=== PATIENT | male | born 1940 | race Caucasian/White ===

== ENCOUNTER 2018-03-20 15:17 | Emergency (ER) | payer OTHER ==
--- OUTSIDE RECORDS SUMMARY | 2018-03-20 15:21 | XMS REPORT | Clinical Summary ---
:1940 Author Organization [facility] Address [address] [place] [address] Care Team Providers Name Role Phone Alfie Biswas MD Primary Care Provider Allergies Active Allergy Reactions Severity Noted Date Comments No Known Drug Allergies 11/28/2015 Medications Medication Sig Dispensed Refills Start Date End Date Status VIT Take 2 0 Active C/E/ZN/COPPR/LUTEI capsules by N/ZEAXAN mouth 2 (two) (PRESERVISION times a day. AREDS 2 ORAL) carvedilol (COREG) Take 25 mg by 0 Active 25 MG tablet mouth 2 (two) times a day. 1.5 tabs 2x daily finasteride Take 5 mg by 0 Active (PROSCAR) 5 mg mouth every tablet morning. tamsulosin Take 0.4 mg by 0 Active (FLOMAX) 0.4 mg mouth 2 (two) capsule,extended times a day. release 24hr ENTRESTO 24-26 mg Take 25 mg by 0 03/09/2017 Active tablet per tablet mouth 2 (two) times a day. memantine daily. At 0 03/21/2017 Active (NAMENDA) 10 MG lunch tablet atorvastatin Take 80 mg by 0 Active (LIPITOR) 80 MG mouth daily. tablet Takes 1/2 tab topiramate Take 100 mg by 0 Active (TOPAMAX) 100 MG mouth every tablet morning. Takes 1/2 tablet atorvastatin Take 10 mg by 0 04/05/2017 Discontinued (LIPITOR) 10 MG mouth daily. tablet topiramate Take 0.5 0 07/11/2017 Discontinued (TOPAMAX) 200 MG tablets by tablet mouth. atorvastatin Take 1 tablet 30 tablet 3 04/05/2017 05/05/2017 (LIPITOR) 40 MG (40 mg total) tablet by mouth daily for 30 days. aspirin (ECOTRIN) Take 1 tablet 90 tablet 3 04/05/2017 05/05/2017 81 MG enteric (81 mg total) coated tablet by mouth daily for 30 days. topiramate TAKE ONE (1) 0 05/07/2017 08/01/2017 Discontinued (TOPAMAX) 100 MG TABLET(S) BY tablet MOUTH ONCE A DAY. docusate sodium Take 1 capsule 60 capsule 0 08/08/2017 08/09/2017 Discontinued (COLACE) 100 MG (100 mg total) capsule by mouth 2 (two) times a day for 30 days. traMADol (ULTRAM) Take 1 tablet 21 tablet 0 08/08/2017 08/18/2017 50 mg tablet (50 mg total) by mouth every 6 (six) hours as needed for moderate pain for up to 21 doses. acetaminophen-code Take 1 tablet 30 tablet 0 08/08/2017 08/09/2017 Discontinued ine (TYLENOL WITH by mouth every CODEINE #3) 300-30 6 (six) hours mg per tablet as needed for moderate pain for up to 14 days. acetaminophen-code Take 1 tablet 30 tablet 0 08/09/2017 08/23/2017 ine (TYLENOL WITH by mouth every CODEINE #3) 300-30 6 (six) hours mg per tablet as needed for moderate pain for up to 14 days. docusate sodium Take 1 capsule 60 capsule 0 08/09/2017 09/08/2017 (COLACE) 100 MG (100 mg total) capsule by mouth 2 (two) times a day for 30 days. Active Problems Problem Noted Date Right kidney mass 08/08/2017 Right renal mass 08/06/2017 Dyspnea on effort 04/03/2017 S/P mitral valve clip implantation 03/22/2017 Hyperlipidemia 11/28/2015 Essential hypertension 11/28/2015 Coronary arteriosclerosis in [place] artery 11/28/2015 Mitral valve regurgitation 11/28/2015 Nonischemic congestive cardiomyopathy 11/28/2015 Encounters Date Type Specialty Care Team Description 10/01/2017 Telephone Urology Carlos Wu MD 08/14/2017 Office Visit Urology Frederic Renal mass (Primary Carlos mendoza MD Dx) 08/09/2017 Patient Outreach Quality Caroline Kelsey RN 08/09/2017 Telephone Urology Dionna Wilcox MA 08/06/2017 Anesthesia Event Urology Delaflor-Stefany Presley NP 08/06/2017 Surgery Urology [facility] ROBOTIC ASSISTED Carlos mendoza MD LAPARSCOPIC RIGHT RADICAL NEPHRECTOMY 08/06/2017 [facility] (Primary Dx[facility] - Medicine Carlos mendoza MD Right renal mass 08/09/2017 08/02/2017 Hospital Encounter Radiology Carlos Wu MD 08/01/2017 Hospital Encounter Radiology [facility] Preop testing Carlos mendoza MD 08/01/2017 Pre-Admit Testing Pre-Admission [facility] Preop testing ( Primary Appointment Testing Carlos mendoza MD Dx) 08/01/2017 Office Visit Urology [facility] Right renal mass Carlos mendoza MD (Primary Dx) 07/29/2017 Telephone Urology Dionna Wilcox MA 07/11/2017 Office Visit Cardiology Jeff, Coronary arteriosclerosis in [place] artery (Primary Dx); Julito Ortiz, Non-rheumatic mitral regurgitation; Nonischemic congestive cardiomyopathy 07/11/2017 Orders Only Urology Samantha Heath MA 07/10/2017 Office Visit Urology [facility] Right renal mass Carlos mendoza MD (Primary Dx) 04/11/2017 Office Visit Cardiology Jeff, Mitral valve insufficiency, unspecified etiology (Primary Dx); Julito Ortiz, Coronary arteriosclerosis in [place] artery; Nonischemic congestive cardiomyopathy 04/03/2017 Surgery Procedural Jeff, Cv left heart cath w Cardiology Juliot Ortiz, lv gram cors [36980 (CPT)] 04/03/2017 Hospital Encounter Nayan Huff, 04/05/2017 04/02/2017 Orders Only Cardiology Jeff, Pre-procedure lab exam (Primary Dx); Julito Ortiz, Angina at rest; Coronary artery disease involving [place] coronary artery of [place] heart with angina pectoris 04/02/2017 Orders Only Cardiology Julito Aguilar MD 03/28/2017 Multidisciplinary Visit Cardiology Jeff, S/P mitral valve clip implantation (Primary Dx); Julito Ortiz, Essential hypertension; Coronary arteriosclerosis in [place] artery 03/28/2017 Hospital Encounter Procedural Jeff Mitral valve disorder; Janusz Ortiz, S/P mitral valve clip implantation 03/22/2017 Orders Only Cardiology Michelle, Mitral valve disorder (Primary Dx); Estefania, S/P mitral valve clip implantation MA 03/22/2017 Orders Only Cardiology Michelle, Mitral valve disorder (Primary Dx); Estefania, S/P mitral valve clip implantation MA after 03/19/2017 Family History Medical History Relation Name Comments Heart disease Father Hypertension Father Hypertension Mother Hypertension Other Relation Name Status Comments Father (Age 65) Mother (Age 87) Other (Age 94) Social History Tobacco Use Types Packs/Day Years Used Date Former Smoker 2 14 Quit: 1964 Smokeless Tobacco: Never Used Alcohol Use Drinks/Week oz/Week Comments Yes occasional Sex Assigned at Date Recorded Not on file Job Start Date Occupation Industry Not on file Not on file Not on file Travel History Travel Start Travel End No recent travel history available. Last Filed Vital Signs Vital Sign Reading Time Taken Blood Pressure 121/58 08/09/2017 11:42 AM CDT Pulse 60 08/09/2017 11:42 AM CDT Temperature 36.2 C (97.2 F) 08/09/2017 11:42 AM CDT Respiratory Rate 18 08/09/2017 11:42 AM CDT Oxygen Saturation 94% 08/09/2017 11:42 AM CDT Inhaled Oxygen Concentration - - Weight 89.4 kg (197 lb) 08/06/2017 12:39 PM CDT Height 177.8 cm (5' 10") 08/01/2017 1:22 PM CDT Body Mass Index 28.27 08/06/2017 12:39 PM CDT Plan of Treatment Health Maintenance Due Date Last Done Comments SHINGLES VACCINES (1 of 2) 01/10/1988 PNEUMOCOCCAL POLYSACCHARIDE VACCINE AGE 65 AND OVER 2003 PNEUMOCOCCAL-13 2003 INFLUENZA VACCINE 09/18/2017 Implants Implanted Type Area Kayak Maker Device Shelf Model / Identifier Expiration Serial / Date Lot Clip Ligtng Hem-O-Braden Endoscpc Aplr [facility] Lg - [id number] Surgical N/A: N/A WECK CLOSURE [id number] / Implanted: 08/06/2017 (Quantity not on file) Implants; SYSTEMS / Expanders; Extenders; Surgical Wires Clip Ligtng Weck Hem-O-Braden Endoscpc Aplr Xl Plymr - [id number] Surgical N/A: N/A WECK CLOSURE [id number] / Implanted: 08/06/2017 (Quantity not on file) Implants; SYSTEMS / Expanders; Extenders; Surgical Wires Clip Ligtng Hem-O-Braden Endoscpc Aplr Plymr Lg - [id number] Surgical N/A: N/A WECK CLOSURE [id number] / Implanted: 08/06/2017 (Quantity not on file) Implants; SYSTEMS / Expanders; Extenders; Surgical Wires Clip Ligtng Weck Hem-O-Braden Endoscpc Aplr Xl Plymr - [id number] Surgical N/A: N/A WECK CLOSURE [id number] / Implanted: 08/06/2017 (Quantity not on file) Implants; SYSTEMS / Expanders; Extenders; Surgical Wires Procedures Procedure Name Priority Date/Time Associated Comments Diagnosis BASIC METABOLIC PANEL Routine 08/14/2017 11:46 Renal mass Results for this AM CDT procedure are in the results section. ZZESTIMATED GFR Routine 08/09/2017 4:00 Results for this AM CDT procedure are in the results section. BASIC METABOLIC PANEL Routine 08/09/2017 4:00 Results for this AM CDT procedure are in the results section. HEMATOCRIT Routine 08/09/2017 12:40 Results for this AM CDT procedure are in the results section. HEMOGLOBIN Routine 08/09/2017 12:40 Results for this AM CDT procedure are in the results section. ZZESTIMATED GFR Routine 08/08/2017 4:00 Results for this AM CDT procedure are in the results section. BASIC METABOLIC PANEL Routine 08/08/2017 4:00 Results for this AM CDT procedure are in the results section. HEMATOCRIT Routine 08/08/2017 3:30 Results for this AM CDT procedure are in the results section. HEMOGLOBIN Routine 08/08/2017 3:30 Results for this AM CDT procedure are in the results section. ZZESTIMATED GFR Routine 08/07/2017 4:05 Results for this AM CDT procedure are in the results section. HEMATOCRIT Routine 08/07/2017 4:05 Results for this AM CDT procedure are in the results section. HEMOGLOBIN Routine 08/07/2017 4:05 Results for this AM CDT procedure are in the results section. BASIC METABOLIC PANEL Routine 08/07/2017 4:05 Results for this AM CDT procedure are in the results section. ZZESTIMATED GFR STAT 08/06/2017 6:44 Results for this PM CDT procedure are in the results section. HEMOGLOBIN STAT 08/06/2017 6:44 Results for this PM CDT procedure are in the results section. HEMATOCRIT STAT 08/06/2017 6:44 Results for this PM CDT procedure are in the results section. BASIC METABOLIC PANEL STAT 08/06/2017 6:44 Results for this PM CDT procedure are in the results section. SURGICAL PATHOLOGY Routine 08/06/2017 5:49 Results for this REQUEST PM CDT procedure are in the results section. NE AN ELECTIVE Routine 08/06/2017 2:42 ENDOTRACHEAL AIRWAY PM CDT Procedure Note - Yaron Mccormack CRNA - 08/06/2017 2:42 PM CDT Airway Performed by: YARON MCCORMACK Authorized by: MINE SANCHEZ Location: OR Urgency: Elective Difficult Airway: No Resident/BLANKER OPERATOR/AA: YARON MCCORMACK Performed by: resident/BLANKER OPERATOR/AA Preoxygenated with 100% O2: Yes Mask Ventilation: Easy mask (#10 OPA) Final Airway Type: Endotracheal airway Final Endotracheal Airway: ETT Cuffed: Yes Technique Used: Direct laryngoscopy Devices/Methods Used in Placement: Intubating stylet Insertion Site: Oral Blade Type: Art Laryngoscope Blade/Videolaryngoscope Blade Size: 2 ETT Size (mm): 8.0 Cuff at minimum occlusion pressure: Yes Measured from: Teeth ETT to Teeth (cm): 23 Placement Verified by: CO2 detection and equal breath sounds Laryngoscopic view: Grade I - full view of glottis Rapid Sequence Induction (RSI): No Modified RSI: No Number of Attempts at Approach: 1 Pt. Preoxygenated for 3 minutes. Eyes taped closed after induction. Easy mask ventilation with oral airway. DL x 1 with Mil 2. Grade I view with BURP. ETT passed atraumatically through cords. Cuff to seal. +ETCO2, +bilateral breath sounds and equal chest rise. ETT secured. ARTERIAL LINE Routine 08/06/2017 2:18 PM CDT Procedure Note - Yaron Mccormack CRNA - 08/06/2017 2:18 PM CDT Arterial line Performed by: YARON MCCORMACK Authorized by: YARON MCCORMACK Staff: Performed by: Anesthesiologist Pre-procedure: patient identified, IV checked, site and side verified, risks and benefits discussed, procedure verified, surgical consent complete, patient position confirmed, monitors and equipment checked and pre-op evaluation complete MSBT: antiseptic used, all elements of maximal sterile barrier technique followed, hand hygiene performed, cap/gown used by other personnel and solutions labeled Indications: Indications: hemodynamic monitoring Anesthesia: Anesthesia: General Procedure Details: Arterial Line placement: Placed post induction Line placement site: Radial Line placement side: Left Arterial line gauge: 20 G Number of attempts: 1 Ultrasound guidance used: No Post-procedure: Post-procedure: Sterile dressing applied Post procedure circulation, sensation, movement: Normal Patient tolerance: Patient tolerated the procedure well with no immediate complications NEPHRECTOMY, PARTIAL, LAPAROSCOPIC, 08/06/2017 12:30 PM CDT Right renal mass ROBOT-ASSISTED Special Needs DAVINCI XR CHEST 2 VW Routine 08/01/2017 2:53 Preop testing Results for this PM CDT procedure are in the results section. URINE CULTURE Routine 08/01/2017 2:00 Results for this PM CDT procedure are in the results section. ECG PRE/POST OP Routine 08/01/2017 1:51 Preop testing Results for this PM CDT procedure are in the results section. PREPARE RBC Routine 08/01/2017 1:44 Results for this PM CDT procedure are in the results section. ZZESTIMATED GFR Routine 08/01/2017 1:44 Results for this PM CDT procedure are in the results section. URINALYSIS SCREEN AND Routine 08/01/2017 1:44 Preop testing Results for this MICROSCOPY, WITH PM CDT procedure are in REFLEX TO CULTURE the results section. TYPE AND SCREEN Routine 08/01/2017 1:44 Preop testing Results for this PM CDT procedure are in the results section. PROTHROMBIN TIME WITH Routine 08/01/2017 1:44 Preop testing Results for this INR PM CDT procedure are in the results section. PARTIAL THROMBOPLASTIN Routine 08/01/2017 1:44 Preop testing Results for this TIME (PTT) PM CDT procedure are in the results section. COMPREHENSIVE Routine 08/01/2017 1:44 Preop testing Results for this METABOLIC PANEL PM CDT procedure are in the results section. CBC HEMOGRAM Routine 08/01/2017 1:44 Preop testing Results for this PM CDT procedure are in the results section. CT ABD/PELVIC EXTERNAL Routine 05/30/2017 1:07 Results for this STUDY PM CDT procedure are in the results section. ECG 12-LEAD Routine 04/11/2017 9:49 Mitral valve Results for this AM [facility] insufficiency, procedure are in unspecified etiology the results section. FLOW CYTOMETRY Routine 04/05/2017 3:04 Results for this EVALUATION PM [facility] procedure are in the results section. US ABDOMEN COMPLETE STAT 04/05/2017 1:19 Results for this PM [facility] procedure are in the results section. NM MYOCARDIAL Routine 04/05/2017 11:31 Results for this PERFUSION STRESS REST AM [facility] procedure are in 1 DAY the results section. CV STRESS TEST NUCLEAR Routine 04/05/2017 11:31 Results for this CARDIO AM [facility] procedure are in the results section. ZZESTIMATED GFR Routine 04/05/2017 4:36 Results for this AM [facility] procedure are in the results section. LIPID PANEL Routine 04/05/2017 4:36 Results for this AM [facility] procedure are in the results section. HEMOGLOBIN A1C Routine 04/05/2017 4:36 Results for this AM [facility] procedure are in the results section. CBC HEMOGRAM Routine 04/05/2017 4:36 Results for this AM [facility] procedure are in the results section. BASIC METABOLIC PANEL Routine 04/05/2017 4:36 Results for this AM [facility] procedure are in the results section. INHIBIT PT, PTT MIX Routine 04/05/2017 4:36 Results for this AM [facility] procedure are in the results section. PARTIAL THROMBOPLASTIN Routine 04/05/2017 4:36 Results for this TIME (PTT) AM [facility] procedure are in the results section. HIV 1, 2 ANTIBODY Routine 04/05/2017 4:36 Results for this AM [facility] procedure are in the results section. HEPATITIS ACUTE PANEL Routine 04/05/2017 4:36 Results for this AM [facility] procedure are in the results section. C-REACTIVE PROTEIN Routine 04/05/2017 4:36 Results for this AM [facility] procedure are in the results section. SEDIMENTATION RATE Routine 04/05/2017 4:36 Results for this AM [facility] procedure are in the results section. NAOMI Routine 04/05/2017 4:36 Results for this AM [facility] procedure are in the results section. PERIPHERAL SMEAR Routine 04/04/2017 4:44 Results for this PM [facility] procedure are in the results section. CTA CORONARY ARTERIES Routine 04/04/2017 10:01 Results for this W CONTRAST AM [facility] procedure are in the results section. CBC HEMOGRAM Routine 04/04/2017 5:35 Results for this AM [facility] procedure are in the results section. ZZESTIMATED GFR Routine 04/04/2017 4:00 Results for this AM [facility] procedure are in the results section. BASIC METABOLIC PANEL Routine 04/04/2017 4:00 Results for this AM [facility] procedure are in the results section. CV LEFT HEART CATH LV Routine 04/03/2017 4:18 Results for this GRAM WITH CORS PM [facility] procedure are in the results section. HC COMPLETE BLD COUNT STAT 04/03/2017 10:24 Results for this W/AUTO DIFF AM [facility] procedure are in the results section. ECG 12-LEAD STAT 04/03/2017 10:21 Results for this AM [facility] procedure are in the results section. ZZESTIMATED GFR STAT 04/03/2017 9:43 Results for this AM [facility] procedure are in the results section. BASIC METABOLIC PANEL STAT 04/03/2017 9:43 Results for this AM [facility] procedure are in the results section. ECG 12-LEAD Routine 03/28/2017 2:33 S/P mitral valve Results for this PM [facility] clip implantation procedure are in the results section. ECHOCARDIOGRAM 2D Routine 03/28/2017 1:45 Mitral valve Results for this COMPLETE W MMODE PM [facility] disorder procedure are in SPECTRAL COLOR DOPPLER S/P mitral valve the results (40526) clip implantation section. after 03/19/2017 Results Basic metabolic panel (08/14/2017 11:46 AM CDT)Only the most recent of8 resultswithin the time period is included. Glucose 88 65 - 99 mg/dL [facility] Comment: [place] Fasting reference interval BUN, whole blood 30 (H) 7 - 25 mg/dL [facility] [place] Creatinine 2.39 (H) 0.70 - 1.18 [facility] Comment: mg/dL [place] For patients >49 years of age, the reference limit for Creatinine is approximately 13% higher for people identified as -[place]. EGFR Non-Afr. [place] 25 (L) > OR=60 [facility] mL/min/1.73m2 [place] EGFR 29 (L) > OR=60 [facility] mL/min/1.73m2 [place] BUN/creatinine ratio 13 6 - 22 (calc) [facility] [place] Sodium 139 135 - 146 mmol/L [facility] [place] Potassium 4.4 3.5 - 5.3 mmol/L [facility] [place] Chloride 105 98 - 110 mmol/L [facility] [place] CO2 24 20 - 31 mmol/L [facility] [place] Calcium 8.7 8.6 - 10.3 mg/dL [facility] [place] Specimen Blood Resulting Agency Comment Performing Organization Information: Site ID: [id number] Name: [facility] Address: [address] [place] [address] Director: Shante Lerner Performing Organization Address [facility] Phone Number [facility] [place] [address] [place] [phone] Estimated GFR (08/09/2017 4:00 AM CDT)Only the most recent of8 resultswithin the time period is included. GFR Non Af Amer 28 (A) mL/min/1.73 m2 [facility] DEPARTMENT OF PATHOLOGY AND GENOMIC MEDICINE GFR Af Amer 33 (A) mL/min/1.73 m2 [facility] DEPARTMENT OF Comment: PATHOLOGY AND GENOMIC Chronic kidney disease: <60 mL/min/1.73m2 MEDICINE Kidney failure: <15 mL/min/1.73m2 The estimated GFR is calculated from the IDMS-traceable Modification of Diet in Renal Disease Equation. The accuracy of the calculation is poor when the creatinine is normal. Calculated values >90 mL/min/1.73m2 are not reported. This equation has not been validated in children (<18 years), women, the elderly (>70 years), or ethnic groups other than Caucasians and Americans. Specimen Plasma specimen Performing Organization Address [facility] Phone Number [facility] DEPARTMENT OF PATHOLOGY AND [address] [place] [address] Hemoglobin (08/09/2017 12:40 AM CDT)Only the most recent of4 resultswithin the time period is included. HGB 11.7 (L) 14.0 - 18.0 g/dL [facility] DEPARTMENT OF PATHOLOGY AND GENOMIC MEDICINE Specimen Blood Performing Organization Address [facility] Phone Number [facility] DEPARTMENT OF PATHOLOGY AND [address] [place] [phone] [facility] Hematocrit (08/09/2017 12:40 AM CDT)Only the most recent of4 resultswithin the time period is included. HCT 36.0 (L) 41.0 - 51.0 % [facility] DEPARTMENT OF PATHOLOGY AND GENOMIC MEDICINE Specimen Blood Performing Organization Address City/[facility] Phone Number [facility] DEPARTMENT OF PATHOLOGY AND [address] [place] [phone] GENOMIC MEDICINE Surgical pathology request (08/06/2017 5:49 PM CDT) [facility] DEPARTMENT OF PATHOLOGY AND GENOMIC MEDICINE Surgical pathology report See link below for PDF [facility] DEPARTMENT OF Lab Report PATHOLOGY AND GENOMIC MEDICINE Result status This is Final Report to [facility] DEPARTMENT OF [id number] PATHOLOGY AND GENOMIC MEDICINE Performing Organization Address [facility] Phone Number [facility] DEPARTMENT OF PATHOLOGY AND [address] [place] [phone] GENOMIC MEDICINE XR Chest 2 Vw (08/01/2017 2:53 PM CDT) Narrative Performed At Examination: Chest 2 views [facility] CLINICAL HISTORY: Z01.818 Encounter for other preprocedural examination, preop COMPARISON: None. FINDINGS: The heart is normal in size. AV sequential pacemaker electrodes are in satisfactory position. IMPRESSION: No pneumothorax. Lungs are clear. Pleural surfaces are smooth. [id number] Procedure Note Interface, Radiology Results Incoming - 08/01/2017 3:00 PM CDT Examination: Chest 2 views CLINICAL HISTORY: Z01.818 Encounter for other preprocedural examination, preop COMPARISON: None. FINDINGS: The heart is normal in size. AV sequential pacemaker electrodes are in satisfactory position. IMPRESSION: No pneumothorax. Lungs are clear. Pleural surfaces are smooth. [id number] Performing Organization Address [facility] Phone Number [facility] [address] [place] [phone] Urine culture (08/01/2017 2:00 PM CDT) Urine culture SEE COMMENTComment: Bacteriuria [facility] DEPARTMENT OF PATHOLOGY screen negative. AND GENOMIC MEDICINE Performing Organization Address [facility] Phone Number [facility] DEPARTMENT OF PATHOLOGY AND [address] [place] [phone] GENOMIC MEDICINE ECG Pre/Post Op (08/01/2017 1:51 PM CDT) Ventricular rate 65 [facility] Atrial rate 65 [facility] NE interval 82 [facility] QRSD interval 186 [facility] QT interval 454 [facility] QTC interval 472 [facility] QRS axis 1 -56 [facility] T wave axis 266 [facility] EKG impression Demand pacemaker, interpretation is based on intrinsic rhythm- Sinus rhythm with short NE with premature ventricular complexes or fusion complexes-Left axis deviation-Right bundle branch block-Marked T wave abnormality, consider inferolateral [facility] MUSE ischemia-Abnormal ECG-In automated comparison with ECG of 01-AUG-2017 13:50,- NE interval has decreased-Electronically Signed By Julito Aguilar MD ([id number]) on 2:22:24 PM Performing Organization Address City/[facility] Phone Number [facility] MUSE [address] [place] [address] Urinalysis screen and microscopy, with reflex to culture (08/01/2017 1:44 PM CDT) Specimen site Clean catch [facility] DEPARTMENT OF PATHOLOGY AND GENOMIC MEDICINE Color, UA Yellow [facility] DEPARTMENT OF PATHOLOGY AND GENOMIC MEDICINE Appearance, UA Clear [facility] DEPARTMENT OF PATHOLOGY AND GENOMIC MEDICINE Specific gravity, UA 1.021 1.001 - 1.035 [facility] DEPARTMENT OF PATHOLOGY AND GENOMIC MEDICINE pH, UA 6.0 5.0 - 8.5 [facility] DEPARTMENT OF PATHOLOGY AND GENOMIC MEDICINE Protein, UA Negative Negative [facility] DEPARTMENT OF PATHOLOGY AND GENOMIC MEDICINE Glucose, UA Negative Negative [facility] DEPARTMENT OF PATHOLOGY AND GENOMIC MEDICINE Ketones, UA Negative Negative [facility] DEPARTMENT OF PATHOLOGY AND GENOMIC MEDICINE Bilirubin, UA Negative Negative [facility] DEPARTMENT OF PATHOLOGY AND GENOMIC MEDICINE Blood, UA Negative Negative [facility] DEPARTMENT OF PATHOLOGY AND GENOMIC MEDICINE Nitrite, UA Negative Negative [facility] DEPARTMENT OF PATHOLOGY AND GENOMIC MEDICINE Urobilinogen, UA <2.0 <2.0 [facility] DEPARTMENT OF PATHOLOGY AND GENOMIC MEDICINE Leukocyte esterase, UA Negative Negative [facility] DEPARTMENT OF PATHOLOGY AND GENOMIC MEDICINE WBC, UA 1 0 - 1 /HPF [facility] DEPARTMENT OF PATHOLOGY AND GENOMIC MEDICINE RBC, UA 1 0 - 5 /HPF [facility] DEPARTMENT OF PATHOLOGY AND GENOMIC MEDICINE Bacteria, UA None seen None seen [facility] DEPARTMENT OF PATHOLOGY AND GENOMIC MEDICINE Yeast, UA None seen [facility] DEPARTMENT OF PATHOLOGY AND GENOMIC MEDICINE Yeast with pseudohyphae, UA None seen [facility] DEPARTMENT OF PATHOLOGY AND GENOMIC MEDICINE Hyaline casts, UA 6 /LPF [facility] DEPARTMENT OF PATHOLOGY AND GENOMIC MEDICINE Specimen Urine Performing Organization Address City/[facility] Phone Number [facility] DEPARTMENT OF PATHOLOGY AND [address] [place] [id number] [facility] Partial thromboplastin time, activated (08/01/2017 1:44 PM CDT)Only the most recent of2 resultswithin the time period is included. PTT 29.7 23.0 - 36.0 sec [facility] DEPARTMENT OF PATHOLOGY Comment: AND GENOMIC MEDICINE PTT therapeutic range for unfractionated heparin is 61.0-112.0 seconds which corresponds to Anti-Xa 0.3-0.7 U/ml. Specimen Blood Performing Organization Address [facility] Phone Number [facility] DEPARTMENT OF PATHOLOGY AND [address] [place] [address] [employer]Me [facility] Prothrombin time with INR (08/01/2017 1:44 PM CDT) Prothrombin time 15.0 12.0 - 15.0 sec [facility] DEPARTMENT OF PATHOLOGY AND GENOMIC MEDICINE INR 1.2 [facility] DEPARTMENT OF Comment: PATHOLOGY AND GENOMIC The International Normalized Ratio (INR) is a therapeutic MEDICINE monitoring tool for patients who are stable on oral anticoagulant therapy. An INR of 2.0-3.0 is suggested for deep vein thrombosis/pulmonary embolism. Specimen Blood Performing Organization Address [facility] Phone Number [facility] DEPARTMENT OF PATHOLOGY AND [address] [place] [address] CBC hemogram (08/01/2017 1:44 PM CDT)Only the most recent of3 resultswithin the time period is included. WBC 5.64 4.50 - 11.00 k/uL [facility] DEPARTMENT OF PATHOLOGY AND GENOMIC MEDICINE RBC 4.43 4.40 - 6.00 m/uL [facility] DEPARTMENT OF PATHOLOGY AND GENOMIC MEDICINE HGB 13.6 (L) 14.0 - 18.0 g/dL [facility] DEPARTMENT OF PATHOLOGY AND GENOMIC MEDICINE HCT 41.7 41.0 - 51.0 % [facility] DEPARTMENT OF PATHOLOGY AND GENOMIC MEDICINE MCV 94.1 82.0 - 100.0 fL [facility] DEPARTMENT OF PATHOLOGY AND GENOMIC MEDICINE MCH 30.7 27.0 - 34.0 pg [facility] DEPARTMENT OF PATHOLOGY AND GENOMIC MEDICINE MCHC 32.6 31.0 - 37.0 g/dL [facility] DEPARTMENT OF PATHOLOGY AND GENOMIC MEDICINE RDW - SD 47.5 37.0 - 55.0 fL [facility] DEPARTMENT OF PATHOLOGY AND GENOMIC MEDICINE MPV 12.5 8.8 - 13.2 fL [facility] DEPARTMENT OF PATHOLOGY AND GENOMIC MEDICINE Platelet count 78 (L) 150 - 400 k/uL [facility] DEPARTMENT OF PATHOLOGY AND GENOMIC MEDICINE Nucleated RBC 0.00 /100 WBC [facility] DEPARTMENT OF PATHOLOGY AND GENOMIC MEDICINE Specimen Blood Performing Organization Address [facility] Phone Number [facility] DEPARTMENT OF PATHOLOGY AND [address] [place] [address] GENOMIC MEDICINE Prepare RBC (08/01/2017 1:44 PM CDT) Product name Red Blood Cells -1, [facility] DEPARTMENT OF Leukored PATHOLOGY AND GENOMIC MEDICINE Unit number [id number] [facility] DEPARTMENT OF PATHOLOGY AND GENOMIC MEDICINE Product code [id number] [facility] DEPARTMENT OF PATHOLOGY AND GENOMIC MEDICINE Dispense status Returned to not [facility] DEPARTMENT OF transfused PATHOLOGY AND GENOMIC MEDICINE Blood expiration date [facility] DEPARTMENT OF PATHOLOGY AND GENOMIC MEDICINE Blood type code 5100 [facility] DEPARTMENT OF PATHOLOGY AND GENOMIC MEDICINE Blood type O POSITIVE [facility] DEPARTMENT OF PATHOLOGY AND GENOMIC MEDICINE Product name Red Blood Cells -1, [facility] DEPARTMENT OF Leukored PATHOLOGY AND GENOMIC MEDICINE Unit number [id number] [facility] DEPARTMENT OF PATHOLOGY AND GENOMIC MEDICINE Product code [id number] [facility] DEPARTMENT OF PATHOLOGY AND GENOMIC MEDICINE Dispense status Returned to BB not [facility] DEPARTMENT OF transfused PATHOLOGY AND GENOMIC MEDICINE Blood expiration date [facility] DEPARTMENT OF PATHOLOGY AND GENOMIC MEDICINE Blood type code 5100 [facility] DEPARTMENT OF PATHOLOGY AND GENOMIC MEDICINE Blood type O POSITIVE [facility] DEPARTMENT OF PATHOLOGY AND GENOMIC MEDICINE Performing Organization Address City/[facility] Phone Number [facility] DEPARTMENT OF PATHOLOGY AND [address] [place] [address] GENOMIC MEDICINE Type and screen (08/01/2017 1:44 PM CDT) ABO grouping O [facility] DEPARTMENT OF PATHOLOGY AND GENOMIC MEDICINE Rh type POS [facility] DEPARTMENT OF PATHOLOGY AND GENOMIC MEDICINE Antibody screen (gel) NEG [facility] DEPARTMENT OF PATHOLOGY AND GENOMIC MEDICINE Specimen Blood Performing Organization Address City/State/Zipcode Phone Number [facility] DEPARTMENT OF PATHOLOGY AND [address] [place] [address] GENOMIC MEDICINE Comprehensive metabolic panel (08/01/2017 1:44 PM CDT) Sodium 142 135 - 148 mEq/L [facility] DEPARTMENT OF PATHOLOGY AND GENOMIC MEDICINE Potassium 4.5 3.5 - 5.0 mEq/L [facility] DEPARTMENT OF PATHOLOGY AND GENOMIC MEDICINE Chloride 109 98 - 112 mEq/L [facility] DEPARTMENT OF PATHOLOGY AND GENOMIC MEDICINE CO2 22 (L) 24 - 31 mEq/L [facility] DEPARTMENT OF PATHOLOGY AND GENOMIC MEDICINE Anion gap 11@ANIO 7 - 15 mEq/L [facility] DEPARTMENT OF PATHOLOGY AND GENOMIC MEDICINE BUN 24 (H) 8 - 23 mg/dL [facility] DEPARTMENT OF PATHOLOGY AND GENOMIC MEDICINE Creatinine 1.8 (H) 0.7 - 1.2 mg/dL [facility] DEPARTMENT OF PATHOLOGY AND GENOMIC MEDICINE Glucose 90 65 - 99 mg/dL [facility] DEPARTMENT OF PATHOLOGY AND GENOMIC MEDICINE Calcium 8.8 8.8 - 10.2 mg/dL [facility] DEPARTMENT OF PATHOLOGY AND GENOMIC MEDICINE Protein 6.3 6.3 - 8.3 g/dL [facility] DEPARTMENT OF Comment: PATHOLOGY AND GENOMIC 4.6-7.0 g/dL MEDICINE 1 week 4.4-7.6 g/dL 7 months-1year5.1-7.3 g/dL 1-2 years5.6-7.5 g/dL >3 years6.0-8.0 g/dL 18-150 6.3-8.3 g/dL Albumin 3.4 (L) 3.5 - 5.0 g/dL [facility] DEPARTMENT OF PATHOLOGY AND GENOMIC MEDICINE A/G ratio 1.2 0.7 - 3.8 [facility] DEPARTMENT OF PATHOLOGY AND GENOMIC MEDICINE Alkaline phosphatase 59 40 - 129 U/L [facility] DEPARTMENT OF PATHOLOGY AND GENOMIC MEDICINE AST 21 10 - 50 U/L [facility] DEPARTMENT OF PATHOLOGY AND GENOMIC MEDICINE ALT 16 5 - 50 U/L [facility] DEPARTMENT OF PATHOLOGY AND GENOMIC MEDICINE Total bilirubin 0.6 0.0 - 1.2 mg/dL [facility] DEPARTMENT OF PATHOLOGY AND GENOMIC MEDICINE Specimen Plasma specimen Performing Organization Address City/[facility] Phone Number [facility] DEPARTMENT OF PATHOLOGY AND [address] [place] [address] [facility] Abd/Pelvic External Study (05/30/2017 1:07 PM CDT) Narrative Performed At This exam was not acquired at a [facility] facility and has not been [facility] interpreted by a [facility] Provider.The exam was imported into our imaging system for comparisons purposes. Performing Organization Address City/[facility] Phone Number [facility] [address] [place] [address] ECG 12 lead (04/11/2017 9:49 AM [employer] [employer] VICE PRESIDENT)Only the most recent of3 resultswithin the time period is included. Ventricular rate 68 [facility] MUSE Atrial rate 68 [facility] QRSD interval 196 [facility] QT interval 478 [facility] QTC interval 508 [facility] P axis 1 10 [facility] QRS axis 1 -55 [facility] MUSE T wave axis 253 [facility] MUSE EKG impression Demand pacemaker, interpretation is based on intrinsic rhythm- Sinus rhythm with premature ventricular complexes or fusion complexes- intermittent paced complexes-Abnormal ECG-In automated comparison with [facility] MUSE ECG of -MAR-2017 10:21,-No significant change was found- : 26 AM Performing Organization Address City/[facility]/Zipcode Phone Number [facility] MUSE [address] [place] [address] Flow cytometry evaluation (04/05/2017 3:04 PM [employer]AD[employer]IC AFFAIRS VICE PRESIDENT) [facility] DEPARTMENT OF PATHOLOGY AND GENOMIC MEDICINE Flow cytometry evaluation See link below for PDF [facility] DEPARTMENT OF Lab Report PATHOLOGY AND GENOMIC MEDICINE Specimen Blood Performing Organization Address City/[facility] Phone Number [facility] DEPARTMENT OF PATHOLOGY AND [address] [place] [phone] GENOMIC MEDICINE US Abdomen Complete (04/05/2017 1:19 PM [employer] [employer]AIRS VICE PRESIDENT) Narrative Performed At EXAM: US ABDOMEN COMPLETE [facility] CLINICAL DATA:liver spleen eval COMPARISON: NONE. FINDINGS: LIVER:The liver demonstrates normal echogenicity without focal mass or intrahepatic biliary ductal dilatation. MPV:Doppler evaluation of the portal vein demonstrates normal hepatopedal flow. The portal vein measures 7 mm in diameter. GALLBLADDER: A small amount of gallbladder sludge is noted. The gallbladder is without evidence of calculi. The gallbladder wall is not thickened and there is no pericholecystic fluid. CBD: 3 mm, within normal limits. PANCREAS:The pancreas is obscured by overlying bowel gas.. SPLEEN:The spleen is homogeneous and not enlarged.. The spleen measures 9.8 x 5.1 x 4.6 cm. RIGHT KIDNEY:The right kidney is normal in size and echogenicity. An approximately 3.7 x 4.9 x 4.2 cm heterogeneous mass is seen within the lower pole of the right kidney.There is no evidence of calculi, or hydronephrosis. . The right kidney measures 9.6 x 3.9 x 5.2 cm. LEFT KIDNEY:The left kidney is normal in size and echogenicity. An approximately 8.6 x 6.6 x 6.3 cm cyst is seen within the upper pole of the left kidney. There is no evidence of solid mass, calculi, or hydronephrosis.. The left kidney measures 14.4 x 5.7 x 5.1 cm. AORTA:Obscured by overlying bowel gas. IVC:The visualized portions of the inferior vena cava are unremarkable. ASCITES: No abnormal abdominal fluid collections are visualized. There is no evidence of ascites. PLEURAL EFFUSION:There are no pleural effusions. IMPRESSION: Unremarkable sonographic appearance of the liver and spleen. Incidental note of approximately 3.7 x 4.9 x 4.2 cm right renal mass. Recommend CT or MRI of the abdomen with renal mass protocol for further evaluation.. [facility]-[id number] Procedure Note [facility], Radiology Results Incoming - 04/05/2017 1:30 PM [employer] VICE PRESIDENT EXAM: US ABDOMEN COMPLETE CLINICAL DATA: liver spleen eval COMPARISON: NONE. FINDINGS: LIVER: The liver demonstrates normal echogenicity without focal mass or intrahepatic biliary ductal dilatation. MPV: Doppler evaluation of the portal vein demonstrates normal hepatopedal flow. The portal vein measures 7 mm in diameter. GALLBLADDER: A small amount of gallbladder sludge is noted. The gallbladder is without evidence of calculi. The gallbladder wall is not thickened and there is no pericholecystic fluid. CBD: 3 mm, within normal limits. PANCREAS: The pancreas is obscured by overlying bowel gas.. SPLEEN: The spleen is homogeneous and not enlarged.. The spleen measures 9.8 x 5.1 x 4.6 cm. RIGHT KIDNEY: The right kidney is normal in size and echogenicity. An approximately 3.7 x 4.9 x 4.2 cm heterogeneous mass is seen within the lower pole of the right kidney. There is no evidence of calculi, or hydronephrosis. . The right kidney measures 9.6 x 3.9 x 5.2 cm. LEFT KIDNEY: The left kidney is normal in size and echogenicity. An approximately 8.6 x 6.6 x 6.3 cm cyst is seen within the upper pole of the left kidney. There is no evidence of solid mass, calculi, or hydronephrosis.. The left kidney measures 14.4 x 5.7 x 5.1 cm. AORTA: Obscured by overlying bowel gas. IVC: The visualized portions of the inferior vena cava are unremarkable. ASCITES: No abnormal abdominal fluid collections are visualized. There is no evidence of ascites. PLEURAL EFFUSION: There are no pleural effusions. IMPRESSION: Unremarkable sonographic appearance of the liver and spleen. Incidental note of approximately 3.7 x 4.9 x 4.2 cm right renal mass. Recommend CT or MRI of the abdomen with renal mass protocol for further evaluation.. [facility]-[id number] Performing Organization Address [facility]/[employer]s Phone Number [facility] [address] [place] [address] CV stress test (04/05/2017 11:31 AM [employer] VICE PRESIDENT) Resting HR 60 [facility] MUSE Resting BP 177 [facility] MUSE Peak MET Achieved 1.0 [facility] MUSE Protocol Name REGADENO [facility] MUSE Time in Exercise Phase 00:01:00 [facility] MUSE Max Systolic BP 180 [facility] MUSE Max Diastolic BP 69 [facility] MUSE Max Heart Rate 78 [facility] MUSE Max Predicted Heart Rate 141 [facility] MUSE Target HR Formula (220 - Age)*100% [facility] MUSE Test Indication EVAL FOR ISCHEMIA [facility] MUSE Stress Test Impression -Waveform interpreted in report [facility] MUSE associated with image study. No interpretation is provided as part of this Stress ECG report.-Electronically Signed By Theodore SINGH, Abelardo Giraldo ([id number]), managing editor Andie Gaming ([id number]) on 04/05/2017 9:12:07 AM Target HR 119.85 bpm [facility] MUSE Performing Organization Address [facility] Phone Number [facility] [address] [phone] Myocardial perfusion (04/05/2017 11:31 AM [employer]AIRS VICE PRESIDENT) Narrative Performed At [facility] Nuclear Cardiology and Cardiac CT [address] [place] [address] Myocardial Perfusion Imaging Report Stress ECG tracings are available in MUSE, EPIC and CV Web All ECG interpretations are included in this report Pat.Name:ISAIAS LAI Pat.ID:[id number] .Date: 04/05/2017 Refer.MD:JULITO AGUILAR MD Exam Time: 7:54:00 AM Study Type:Myocardial Perfusion Imaging Height:70inWeight: 195lb BSA: 2.07 m2 DOBAge:1940,77Y Sex: MALEBP:177/86 HR:60 bpmHCT: 43.8 % Nuclear Tech:JAROD Waterman, DAYT/JAROD Davies Pat. Stat.:Outpatient Room:D 101 Nuclear Event ID:[id number] Order ID:[id number] Reason for Study:[place] History / Clinical:Cardiomegaly/Cardiomyopathy, Coronary artery disease, Family history CAD, Hyperlipidemia, Hypertension, Former smoker, Valvular heart disease Procedures:Single Day Stress / Rest Race: Risk Factors:Cardiovascular Disease, Hyperlipidemia, Hypertension, Family history of cardiovascular disease Clinical Symptoms:Regadenoson Physical Exam:S1, S2 Surgery: K+ - 3.5 - 04/05/17, Bun/Cr - /1.3 - 04/05/17 Medications:Coreg, Hydralazine, Lipitor, Entresto SUMMARY: SCINTIGRAPHIC RESULTS Perfusion Defect Size (% LV) 42% Total 12% Ahyrkmmz70% Scar Left Ventricular Perfusion Results There is a mild inferoapical, apical lateral, and basal inferolateral perfusion defect during stress which improves with rest imaging. There is a moderate mid inferolateral perfusion defect during stress which improves with rest imaging. There is a mild mid inferior and basal inferior perfusion defect during stress which remains unchanged with rest imaging. Gated SPECT Results The post stress left ventricular ejection fraction is 45% with akinesis of all hypoperfused segments.Left ventricular end-diastolic volume is 274 ml; end-systolic volume is150 ml.The left ventricle is severely enlarged at stress and rest.The right ventricle is of normal size with normal wall motion. Conclusion Abnormal regadenoson Tc-99m tetrofosmin myocardial perfusion study compatible with predominance of scar in the right and circumflex coronary artery vascular territories. The LVEF is mildly depressed. The RVEF is normal.LV and RV hypertrophy are present.Severe LV dilation is present. Comments The study results indicate a high (>2%) annual risk for a cardiac or non-fatal myocardial infarction. Study Quality/Artifacts The study quality is good. Comparison to Previous Study None available. STRESS: Baseline Vital Signs:Intervention: Regadenoson 0.4mg/5ml IV over 10 seconds followed by radiotracer injection and 5ml saline flush HR:60 BP:177/86 Stress Test Results: Target HR: 120 Symptoms and Complications: Terminated: As per Regadenoson protocol Symptoms:Nausea, Headache, Fingers numb Complications: None Conclusions: Normal heart rate response to pharmacological stress, Normal blood pressure response to pharmacological stress Signed 04/05/2017 03:02 PM Abelardo Jaimes MD Procedure Note Interface, Radiology Results In - 04/05/2017 3:03 PM [facility] Nuclear Cardiology and Cardiac CT [address] [place] [address] Myocardial Perfusion Imaging Report Stress ECG tracings are available in [employer] and [employer] All ECG interpretations are included in this report Pat.Name: ISAIAS LAI Pat.ID: [id number] .Date: 04/05/2017 Refer.MD: JULITO AGUILAR MD Exam Time: 7:54:00 AM Study Type:Myocardial Perfusion Imaging Height: 70in Weight: 195lb BSA: 2.07 m2 Age: 11 1940,77Y Sex: MALE BP: 177/86 HR: 60 bpm HCT: 43.8 % Nuclear Tech:ROVERTO WatermanMT, [employer] [facility] [facility] CLINICLeonela/JAROD Davies Pat. Stat.:Outpatient Room: [address] Nuclear Event ID:[id number] Order ID: [id number] Reason for Study:[place] History / Clinical:Cardiomegaly/Cardiomyopathy, Coronary artery disease, Family history CAD, Hyperlipidemia, Hypertension, Former smoker, Valvular heart disease Procedures:Single Day Stress / Rest Race: Risk Factors:Cardiovascular Disease, Hyperlipidemia, Hypertension, Family history of cardiovascular disease Clinical Symptoms:Regadenoson Physical Exam:S1, S2 Surgery: K+ - 3.5 - 04/05/17, Bun/Cr - 16/1.3 - 04/05/17 Medications:Coreg, Hydralazine, Lipitor, Entresto SUMMARY: SCINTIGRAPHIC RESULTS Perfusion Defect Size (% LV) 42% Total 12% Ischemia 30% Scar Left Ventricular Perfusion Results There is a mild inferoapical, apical lateral, and basal inferolateral perfusion defect during stress which improves with rest imaging. There is a moderate mid inferolateral perfusion defect during stress which improves with rest imaging. There is a mild mid inferior and basal inferior perfusion defect during stress which remains unchanged with rest imaging. Gated SPECT Results The post stress left ventricular ejection fraction is 45% with akinesis of all hypoperfused segments. Left ventricular end-diastolic volume is 274 ml; end-systolic volume is 150 ml. The left ventricle is severely enlarged at stress and rest. The right ventricle is of normal size with normal wall motion. Conclusion Abnormal regadenoson Tc-99m tetrofosmin myocardial perfusion study compatible with predominance of scar in the right and circumflex coronary artery vascular territories. The LVEF is mildly depressed. The RVEF is normal. LV and RV hypertrophy are present. Severe LV dilation is present. Comments The study results indicate a high (>2%) annual risk for a cardiac or non-fatal myocardial infarction. Study Quality/Artifacts The study quality is good. Comparison to Previous Study None available. STRESS: Baseline Vital Signs: Intervention: Regadenoson 0.4mg/5ml IV over 10 seconds followed by radiotracer injection and 5ml saline flush HR: 60 BP: 177/86 Stress Test Results: Target HR: 120 Symptoms and Complications: Terminated: As per Regadenoson protocol Symptoms: Nausea, Headache, Fingers numb Complications: None Conclusions: Normal heart rate response to pharmacological stress, Normal blood pressure response to pharmacological stress Signed 04/05/2017 03:02 PM Abelardo Jaimes MD Performing Organization Address City/[facility]/Zipcode Phone Number [facility] [address] [place] [address] Inhibit PT, PTT mix (04/05/2017 4:36 AM ACADEMIC AFFAIRS VICE PRESIDENT) PT patient 0 minutes SEE COMMENT 12.0 - 15.0 sec [facility] DEPARTMENT OF Comment: PATHOLOGY AND GENOMIC Footnote--------- MEDICINE PT inhibitor screen (PT 1:1 mix) is only performed when PT > 15.0 seconds. Patient will be credited. PT 1:1 mix 0 minutes SEE COMMENTComment: 12.0 - 15.0 sec [facility] DEPARTMENT OF Footnote--------- PATHOLOGY AND GENOMIC MEDICINE PTT patient 0 minutes SEE COMMENT 23.0 - 36.0 sec [facility] DEPARTMENT OF Comment: PATHOLOGY AND GENOMIC Footnote--------- MEDICINE PTT inhibitor screen (PTT 1:1 mix) is only performed when PTT > 36.0 seconds. Patient will be credited. PTT 1:1 mix 0 minutes SEE COMMENTComment: 23.0 - 36.0 sec [facility] DEPARTMENT OF Footnote--------- PATHOLOGY AND GENOMIC MEDICINE PTT patient 60 minutes SEE COMMENTComment: 23.0 - 36.0 sec [facility] DEPARTMENT OF Footnote--------- PATHOLOGY AND GENOMIC MEDICINE PTT 1:1 mix 60 minutes SEE COMMENTComment: 23.0 - 36.0 sec [facility] DEPARTMENT OF Footnote--------- PATHOLOGY AND GENOMIC MEDICINE PT, PTT mix interpretation SEE COMMENTComment: sec [facility] DEPARTMENT OF Footnote--------- PATHOLOGY AND GENOMIC MEDICINE Specimen Blood Performing Organization Address [facility] Phone Number [facility] DEPARTMENT OF PATHOLOGY AND [address] [place] [address] [facility] Hepatitis acute panel (04/05/2017 4:36 AM [employer] VICE PRESIDENT) Hepatitis A IgM Non-reactive Non-reactive [facility] DEPARTMENT OF PATHOLOGY AND GENOMIC MEDICINE Hepatitis B core IgM Non-reactive Non-reactive [facility] DEPARTMENT OF PATHOLOGY AND GENOMIC MEDICINE Hepatitis B surface Ag Non-reactive Non-reactive [facility] DEPARTMENT OF PATHOLOGY AND GENOMIC MEDICINE Hepatitis C Ab Non-reactive Non-reactive [facility] DEPARTMENT OF PATHOLOGY AND GENOMIC MEDICINE Specimen Blood Performing Organization Address City/[facility]/Zipcode Phone Number [facility] DEPARTMENT OF PATHOLOGY AND [address] [place] [address] HIV 1, 2 antibody (04/05/2017 4:36 AM [employer]AIRS VICE PRESIDENT) HIV 1, 2 antibody Non-reactive Non-reactive [facility] DEPARTMENT OF Comment: PATHOLOGY AND GENOMIC Starting from May 17 2015, 4th generation HIV screening MEDICINE and confirmation assays are in use at [facility], consistent with the CDC-recommended algorithm. The screening test detects antibodies to HIV-1, HIV-2 and the p24 antigen. Positive screening results will be automatically reflexed to a HIV-1/HIV-2 differentiation assay. Indeterminant HIV-1 results will be further automatically reflexed to a nucleic acid test for detection of acute infection. Western blot will no longer be performed as a confirmation test. For a quick reference guide on the testing algorithm, please refer to: http://stacks.cdc.gov/view/cdc/23091. Specimen Blood Performing Organization Address City/[facility] Phone Number [facility] DEPARTMENT OF PATHOLOGY AND [address] [place] [address] Sedimentation rate (04/05/2017 4:36 AM [employer] [employer]AIRS VICE PRESIDENT) Sedimentation rate 4 0 - 10 mm/hr [facility] DEPARTMENT OF PATHOLOGY AND GENOMIC MEDICINE Specimen Blood Performing Organization Address [facility] Phone Number [facility] DEPARTMENT OF PATHOLOGY AND [address] [place] [address] C-reactive protein (04/05/2017 4:36 AM [employer] [employer] VICE PRESIDENT) CRP <0.30 0.00 - 0.50 mg/dL [facility] DEPARTMENT OF PATHOLOGY AND GENOMIC MEDICINE Specimen Plasma specimen Performing Organization Address [facility] Phone Number [facility] DEPARTMENT OF PATHOLOGY AND [address] [place] [address] NAOMI (04/05/2017 4:36 AM [employer] VICE PRESIDENT) NAOMI screen <1:80 <1:80 [facility] DEPARTMENT OF PATHOLOGY AND GENOMIC MEDICINE Specimen Blood Performing Organization Address [facility]code Phone Number [facility] DEPARTMENT OF PATHOLOGY AND [address] [place] [address] Hemoglobin A1c (04/05/2017 4:36 AM [employer]AIRS VICE PRESIDENT) Hemoglobin A1C 5.5 4.0 - 5.6 % [facility] DEPARTMENT OF PATHOLOGY Comment: AND GENOMIC MEDICINE HbA1c cutoffs for diagnosing diabetes: 4.0% - 5.6%=normal 5.7% - 6.4%=increased risk for diabetes (prediabetes) >=6.5%=diabetes Goals for glycemic control (ADA 2016) < 7.0%Target for non adults with diabetes. More or less stringent targets may be appropriate for individual patients. <7.5% Target for Children and adolescents with type 1 diabetes. Specimen Blood Performing Organization Address [facility] Phone Number [facility] DEPARTMENT OF PATHOLOGY AND [address] [place] [address] GENOMIC MEDICINE Lipid panel (04/05/2017 4:36 AM [employer]AIRS VICE PRESIDENT) Cholesterol 143 <200 mg/dL [facility] DEPARTMENT OF PATHOLOGY AND GENOMIC MEDICINE Triglycerides 73 <150 mg/dL [facility] DEPARTMENT OF PATHOLOGY AND GENOMIC MEDICINE HDL cholesterol 60 >40 mg/dL [facility] DEPARTMENT OF PATHOLOGY AND GENOMIC MEDICINE LDL cholesterol 76Comment: Result <100 mg/dL [facility] DEPARTMENT obtained by direct LDL PATHOLOGY AND GENOMIC measurement MEDICINE Lipid panel interpretation SeeBelow [facility] DEPARTMENT OF Comment: PATHOLOGY AND GENOMIC Total Cholesterol (mg/dL) MEDICINE <200 Desirable 258-384Whxqtnccbe-whin >=240High Triglycerides (mg/dL) <150 Normal 698-689Zxzzeelcmg-zkei 200-499High >=500Very high HDL Cholesterol (mg/dL) <40Low (male) <40Low (female) LDL Cholesterol (mg/dL) <100 Optimal 100-129Near or above optimal 354-233Fimecfruhy-fswm 160-189High >=190Very high Risk Catergories that modify LDL goals. Risk CatergoriesLDL goal (mg/dL) CHD and CHD risk equivalent<100 (10-year risk >20%) Multiple (2+) risk factors <130 (10-year risk=<20%) 0-1 risk factors <160 (<10-year risk) Defining levels of lipids in metabolic syndrome Triglycerides>=150 mg/dL HDL Cholesterol Men<40 mg/dL Women<40 mg/dL Non-HDL cholesterol is a second target for therapy in persons with high triglycerides (>=200 mg/dL) Specimen Plasma specimen Performing Organization Address City/[facility]/Zipcode Phone Number [facility] DEPARTMENT OF PATHOLOGY AND [address] [place] [address] [facility] Peripheral smear (04/04/2017 4:44 PM [employer]AIRS VICE PRESIDENT) Peripheral smear Done [facility] DEPARTMENT OF PATHOLOGY Comment: AND GENOMIC MEDICINE Peripheral smear is located in Hematology Laboratory, second floor of [facility]. Specimen Blood Performing Organization Address City/State/Zipcode Phone Number [facility] DEPARTMENT OF PATHOLOGY AND [address] [place] [address] [employer] [facility] Cv cta coronary arteries w contrast (04/04/2017 10:01 AM [employer]AIRS VICE PRESIDENT) Narrative Performed At [facility] Nuclear Cardiology and Cardiac CT [address] [place] [address] CTA Coronary Arteries Report Pat.Name:ISAIAS LAI Pat.ID:[id number] St.Date: 04/04/2017 Refer.MD:JULITO AGUILAR MD Exam Time: 9:35:00 AMStudy Type:CTA Coronary Arteries Height:70inWeight: 195.59lb BSA: 2.07 m2 DOBAge:1940,77Y Sex: MALEBP:160/91 HR:60 bpm Nuclear Tech:Selam Martinez RT(R)(CT) Pat. Stat.:Inpatient CPT - 4: CCTA w Thoracic Aorta (NonCongenital) [id number] Nuclear Event ID:[id number] Order ID:[id number] Reason for Study:CAD [place] coronary artery* Procedures:CT Coronary Angiography Race:C SUMMARY: Technique: IV contrast was administered and sequential 0.[address] cuts were obtained through the chest using the Siemens Somatom Force CT scanner. Post-processing and 3D reconstruction were done using the People[employer] workstation. Interactive image viewing and volumetric display and analysis were also performed. CTA RESULTS Left Main: A normal sized artery which arises normally from the left sinus of Valsalva and divides into the left anterior descending and circumflex coronary arteries. Mild calcified atherosclerotic plaque is present but without significant stenosis. Left anterior descending (LAD): A normal sized artery which wraps around the apex and gives off two diagonal branches. Moderatepredominantly calcified atherosclerotic plaque is present in the mid segment with The first diagonal has no significant atherosclerotic plaque present. The second diagonal has no significant atherosclerotic plaque present. Left circumflex: A normal sized non-dominant artery which arises normally from the left main and gives off two major obtuse marginal arteries before terminating in the AV groove. Moderate calcified and non-calcified atherosclerotic plaque is present with total occlusion in the proximal segment. The distal LCX and OMS are underfilled. Two small, calcified obtuse marginals are present Right coronary artery: A normal sized dominant artery which arises normally from the right sinus of Valsalva and gives off several right ventricular branches, the posterior descending artery and the posterolateral artery. Severe calcified and non-calcified atherosclerotic plaque is present in the proximal and mid segments with moderate stenosis (50-69%) in the proximal segment. The posterior descending artery has mild calcified atherosclerotic plaque present but no significant stenosis. The posterolateral artery which has mild calcified atherosclerotic plaque present but no significant stenosis. Ramus: A normal-sized artery which has no significant atherosclerotic plaque present. Stents: None. Bypass Grafts: None. Pulmonary Arteries: Normal pulmonary artery sizes with no proximal thrombus identified. Left Atrial and Pulmonary Vein Dimensions: Left atrial size (A-P diameter) 5.0 cm. Normal PV anatomy There is no evidence of the left atrial appendage clot. Left Ventricular Valve Morphology/Function: LV septal wall thickness 9 mm. There is a MitraClip visualized. Thoracic Aortic Dimensions: No aortic aneurysm or dissection is seen. Aortic root3.5 cm. Mid ascending aorta 2.9 cm. Descending thoracic aorta 2.5 cm. Pericardium: No pericardial effusion or pericardial thickening. Non-Cardiac Findings: Right-sided and left sided device leads noted. Small hiatal hernia. CONCLUSION The coronary artery calcium score indicates a severe extent of coronary atherosclerosis. CT coronary angiography shows moderate stenosis in the mid LAD and occlusion of the proximal LCX. Normal PV anatomy. There is no evidence of the left atrial appendage clot. STUDY QUALITY The study quality is excellent. COMMENTS None. The above report was based on a dedicated Cardiovascular CTA Protocol and interpreted by a Leather Colorer.Should a more comprehensive assessment of non-cardiovascular findings be desired, please consult a radiologist.These images are available in the [facility] [employer] PACS system. Signed 04/04/2017 11:33 AM Carrillo Sanchez MD Procedure Note Interface, Radiology Results In - 04/04/2017 11:34 AM [facility] Nuclear Cardiology and Cardiac CT [address] [address] CTA Coronary Arteries Report Pat.Name: ISAIAS LAI Pat.ID: [id number] .Date: 04/04/2017 Refer.MD: JULITO AGUILAR MD Exam Time: 9:35:00 AM Study Type:CTA Coronary Arteries Height: 70in Weight: 195.59lb BSA: 2.07 m2 Age: 11 1940,77Y Sex: MALE BP: 160/91 HR: 60 bpm Nuclear Tech:Selam Martinez RT(R)(CT) Pat. Stat.:Inpatient CPT - 4: CCTA w Thoracic Aorta (NonCongenital) [id number] Nuclear Event ID:[id number] Order ID: [id number] Reason for Study:CAD [place] coronary artery* Procedures:CT Coronary Angiography Race: C SUMMARY: Technique: IV contrast was administered and sequential 0.[address] cuts were obtained through the chest using the Siemens Somatom Force CT scanner. Post-processing and 3D reconstruction were done using the People[employer] workstation. Interactive image viewing and volumetric display and analysis were also performed. CTA RESULTS Left Main: A normal sized artery which arises normally from the left sinus of Valsalva and divides into the left anterior descending and circumflex coronary arteries. Mild calcified atherosclerotic plaque is present but without significant stenosis. Left anterior descending (LAD): A normal sized artery which wraps around the apex and gives off two diagonal branches. Moderate predominantly calcified atherosclerotic plaque is present in the mid segment with The first diagonal has no significant atherosclerotic plaque present. The second diagonal has no significant atherosclerotic plaque present. Left circumflex: A normal sized non-dominant artery which arises normally from the left main and gives off two major obtuse marginal arteries before terminating in the AV groove. Moderate calcified and non-calcified atherosclerotic plaque is present with total occlusion in the proximal segment. The distal LCX and OMS are underfilled. Two small, calcified obtuse marginals are present Right coronary artery: A normal sized dominant artery which arises normally from the right sinus of Valsalva and gives off several right ventricular branches, the posterior descending artery and the posterolateral artery. Severe calcified and non-calcified atherosclerotic plaque is present in the proximal and mid segments with moderate stenosis (50-69%) in the proximal segment. The posterior descending artery has mild calcified atherosclerotic plaque present but no significant stenosis. The posterolateral artery which has mild calcified atherosclerotic plaque present but no significant stenosis. Ramus: A normal-sized artery which has no significant atherosclerotic plaque present. Stents: None. Bypass Grafts: None. Pulmonary Arteries: Normal pulmonary artery sizes with no proximal thrombus identified. Left Atrial and Pulmonary Vein Dimensions: Left atrial size (A-P diameter) 5.0 cm. Normal PV anatomy There is no evidence of the left atrial appendage clot. Left Ventricular Valve Morphology/Function: LV septal wall thickness 9 mm. There is a MitraClip visualized. Thoracic Aortic Dimensions: No aortic aneurysm or dissection is seen. Aortic root 3.5 cm. Mid ascending aorta 2.9 cm. Descending thoracic aorta 2.5 cm. Pericardium: No pericardial effusion or pericardial thickening. Non-Cardiac Findings: Right-sided and left sided device leads noted. Small hiatal hernia. CONCLUSION The coronary artery calcium score indicates a severe extent of coronary atherosclerosis. CT coronary angiography shows moderate stenosis in the mid LAD and occlusion of the proximal LCX. Normal PV anatomy. There is no evidence of the left atrial appendage clot. STUDY QUALITY The study quality is excellent. COMMENTS None. The above report was based on a dedicated Cardiovascular CTA Protocol and interpreted by a Leather Colorer. Should a more comprehensive assessment of non-cardiovascular findings be desired, please consult a radiologist. These images are available in the [facility] [employer] PACS system. Signed 04/04/2017 11:33 AM Carrillo Sanchez MD Performing Organization Address City/State/Zipcode Phone Number [facility] [address] [place] [address] Cv hospital laboratory technician procedure (04/03/2017 4:18 PM [employer]IC [employer]FFAIRS VICE PRESIDENT) Narrative Performed At [facility] LM: patent LAD: mild to moderate diffuse disease, 60% in distal LAD LCx: proximally occluded RCA: 60% prox lesion with collaterals to left system but does not fill the LCx Essentially unchanged from [facility] 2015 Plan: Admit overnight Nuclear stress test to evaluate for ischemia CTA coronaries to evaluate LCx anatomy, collaterals I was physically present for the critical portions of all procedures performed during this episode of care. Moderate sedation was administered with physician supervisionof patient consciousness, respiration, Oxygen saturation and CO2 monitoring, beginning [id number] ( time)for a total period of 60 minutes. I was physically present for the critical portions of all procedures performed during this episode of care Performing Organization Address City/State/Zipcode Phone Number [facility] [address] [place] [address] CBC with platelet and differential (04/03/2017 10:24 AM [employer]AD[employer]IC AFFAIRS VICE PRESIDENT) WBC 6.39 4.50 - 11.00 k/uL [facility] DEPARTMENT OF PATHOLOGY AND GENOMIC MEDICINE RBC 4.96 4.40 - 6.00 m/uL [facility] DEPARTMENT OF PATHOLOGY AND GENOMIC MEDICINE HGB 15.1 14.0 - 18.0 g/dL [facility] DEPARTMENT OF PATHOLOGY AND GENOMIC MEDICINE HCT 45.4 41.0 - 51.0 % [facility] DEPARTMENT OF PATHOLOGY AND GENOMIC MEDICINE MCV 91.5 82.0 - 100.0 fL [facility] DEPARTMENT OF PATHOLOGY AND GENOMIC MEDICINE MCH 30.4 27.0 - 34.0 pg [facility] DEPARTMENT OF PATHOLOGY AND GENOMIC MEDICINE MCHC 33.3 31.0 - 37.0 g/dL [facility] DEPARTMENT OF PATHOLOGY AND GENOMIC MEDICINE RDW - SD 43.3 37.0 - 55.0 fL [facility] DEPARTMENT OF PATHOLOGY AND GENOMIC MEDICINE MPV 11.9 8.8 - 13.2 fL [facility] DEPARTMENT OF PATHOLOGY AND GENOMIC MEDICINE Platelet count 78 (L) 150 - 400 k/uL [facility] DEPARTMENT OF PATHOLOGY AND GENOMIC MEDICINE Nucleated RBC 0.00 /100 WBC [facility] DEPARTMENT OF PATHOLOGY AND GENOMIC MEDICINE Neutrophils 67.3 39.0 - 69.0 % [facility] DEPARTMENT OF PATHOLOGY AND GENOMIC MEDICINE Lymphocytes 23.5 (L) 25.0 - 45.0 % [facility] DEPARTMENT OF PATHOLOGY AND GENOMIC MEDICINE Monocytes 7.4 0.0 - 10.0 % [facility] DEPARTMENT OF PATHOLOGY AND GENOMIC MEDICINE Eosinophils 0.5 0.0 - 5.0 % [facility] DEPARTMENT OF PATHOLOGY AND GENOMIC MEDICINE Basophils 0.8 0.0 - 1.0 % [facility] DEPARTMENT OF PATHOLOGY AND GENOMIC MEDICINE Immature granulocytes 0.5Comment: 0.0 - 1.0 % [facility] DEPARTMENT OF "Immature PATHOLOGY AND GENOMIC granulocytes" MEDICINE (promyelocytes, myelocytes, metamyelocytes) Specimen Blood Performing Organization Address City/State/Zipcode Phone Number [facility] DEPARTMENT OF PATHOLOGY AND [address] [place] [address] GENOMIC MEDICINE Echocardiogram complete w contrast and 3D if needed (03/28/2017 1:45 PM ACADEMIC AFFAIRS VICE PRESIDENT) Narrative Performed At [facility] Echocardiography Report [address], [place] [address] Pat.Name:ISAIAS LAI.ID:[id number] .Date: 03/28/2017Refer.MD:JULITO AGUILAR MD Exam Time: 11:46:00 AM Study Type:Routine Echo Height:70inWeight: 195lb BSA: 2.07 m2 DOBAge:1940,77Y Sex: MALEBP:135/66 HR:61 bpmSonogrphr: ROSETTA Dietz Pat. Stat.:OutpatientStudy Status:Final Echo Event ID:[id number] Order ID:[id number] Reason for Study:Mitral valve clip History / Clinical:Coronary Artery Disease, Dyspnea On Exertion, Hyperlipidemia, Hypertension, Valvular Heart Disease; Mitral Regurgitaiton Procedures:2D Echo, Colorflow Doppler Race:C SUMMARY: LV EF is mildly depressed. Estimated EF is 45-49%. RV systolic function is normal. MitraClip noted within the mitral valve. Unable to assess severity of mitral regurgitation accurately. Suspect a mild eccentric lesion. Estimated mean mitral valve gradient 3 mmHg at a heart rate of 60 b/min. FINDINGS: LV: LV size is upper limits of normal. There is severe concentricLV hypertrophy. LV EF is mildly depressed. EstimatedEF is 45-49%. RV: RV size is enlarged. A pacemaker wire is seen in the RV. RV systolicfunction is normal. LA: LA volume is severely enlarged. RA: RA volume is mild to moderately enlarged. A pacemaker wire isseen. AO: Aortic root diameter is upper limits of normal in size. CIERA: No pericardial effusion. AV: Mild thickening and calcification of AV leaflets. A trace of aorticregurgitation. MV: MitraClip noted within the mitral valve. Unable to assess severityof mitral regurgitation accurately. Suspect a mild eccentriclesion. If clinically indicated, FAVIOLA imaging may behelpful. Estimated mean mitral valve gradient 3 mmHg at aheart rate of 60 b/min. PV: No structural PV abnormalities noted. TV: No structural TV abnormalities noted. A trace of tricuspid regurgitation Aaron: Hepatic vein pressure is normal, RA pressure < 5mmHg. Other:Insufficient TR jet to estimate PA systolic pressure. MEASUREMENTS: 2D Parasternal [place] LVOT 2.3 cmLA Ds6 cm LVIDd5 cmIndex2.4 cm/m Ao An2.5 cm LVIDs3.7 cmAo Rtd 4 cm Index1.9 cm/m LV%fs 26.1 % LV Sulc553.2 g(122-174) IVSd 1.6 cmLVM Tzmlv558.2 g/m2 LVPWd1.4 cmRWT0.6 LV EF Biplane IQHWD757.4 ml (65-193) Index93.9 ml/m LV SV 92.4 ml [id number] bgSvtbo52.3 ml/m LV EF 47.5 %(63-77) Right Ventricle RVIDd6.2 cm (2.6-4.3) LA Sng Plane LA Area 31.2 cm2(8.8-23.4) LA Vol 110.4 ml Index53.3 ml/m LA LngAx 7.3 cm RA Sng Plane RA Area 23.6 cm2(8.3-19.5) RA Vol77.9 ml Index37.7 ml/m RA LngAx 7 cm DOPPLER LVOT Stroke Vol LVOT 2.3 cmLVOT CO5.4 l/min LVOT TVI21.5 cmLVOT CI2.6 l/m/m2 LVOT Tm302 uqdcAD64 bpm LVOT SV 89.3 ml MV For Flow/Valve Assess MV pkVel 144.6 cm/sMV Dec T 296 msec MV pkPG8.4 mmHgMV TVI42.3 cm MV Mean G2.7 mmHgMV Area P1/2t2.5 cm2(4-6) WALL MOTION: RESTING WALL MOTION: Basal Anterolateral, Mid Anterolateral vidal are akinetic.Basal Inferior, Basal Inferolateral, Mid Inferior, Mid Inferolateral, Apical Lateral vidal are hypokinetic.Apical Inferior, Apical vidal are mildly hypokinetic. Normal in all other vidal. Wall Index=1.6 Signed 03/29/2017 03:24 PM Makenna Bruce MD Procedure Note Interface, Radiology Results In - 03/29/2017 3:24 PM [employer] [employer] VICE PRESIDENT Echocardiography Report [address] [place] [address] Pat.Name: ISAIAS LAI Pat.ID: [id number] .Date: 03/28/2017 Ernestina.MD: JULITO AGUILAR MD Exam Time: 11:46:00 AM Study Type:Routine Echo Height: 70in Weight: 195lb BSA: 2.07 m2 Age: 11 1940,77Y Sex: MALE BP: 135/66 HR: 61 bpm Sonogrphr: ROSETTA Dietz Pat. Stat.:Outpatient Study Status:Final Echo Event ID:[id number] Order ID: [id number] Reason for Study:Mitral valve clip History / Clinical:Coronary Artery Disease, Dyspnea On Exertion, Hyperlipidemia, Hypertension, Valvular Heart Disease; Mitral Regurgitaiton Procedures:2D Echo, Colorflow Doppler Race: C SUMMARY: LV EF is mildly depressed. Estimated EF is 45-49%. RV systolic function is normal. MitraClip noted within the mitral valve. Unable to assess severity of mitral regurgitation accurately. Suspect a mild eccentric lesion. Estimated mean mitral valve gradient 3 mmHg at a heart rate of 60 b/min. FINDINGS: LV: LV size is upper limits of normal. There is severe concentric LV hypertrophy. LV EF is mildly depressed. Estimated EF is 45-49%. RV: RV size is enlarged. A pacemaker wire is seen in the RV. RV systolic function is normal. LA: LA volume is severely enlarged. RA: RA volume is mild to moderately enlarged. A pacemaker wire is seen. AO: Aortic root diameter is upper limits of normal in size. CIERA: No pericardial effusion. AV: Mild thickening and calcification of AV leaflets. A trace of aortic regurgitation. MV: MitraClip noted within the mitral valve. Unable to assess severity of mitral regurgitation accurately. Suspect a mild eccentric lesion. If clinically indicated, FAVIOLA imaging may be helpful. Estimated mean mitral valve gradient 3 mmHg at a heart rate of 60 b/min. PV: No structural PV abnormalities noted. TV: No structural TV abnormalities noted. A trace of tricuspid regurgitation Aaron: Hepatic vein pressure is normal, RA pressure < 5mmHg. Other: Insufficient TR jet to estimate PA systolic pressure. MEASUREMENTS: 2D Parasternal [place] LVOT 2.3 cm LA Ds 6 cm LVIDd 5 cm Index 2.4 cm/m Ao An 2.5 cm LVIDs 3.7 cm Ao Rtd 4 cm Index 1.9 cm/m LV%fs 26.1 % LV Mass 315.2 g (122-174) IVSd 1.6 cm LVM Index 152.2 g/m2 LVPWd 1.4 cm RWT 0.6 LV EF Biplane LVEDV 194.4 ml (65-193) Index 93.9 ml/m LV SV 92.4 ml LVESV 102 ml Index 49.3 ml/m LV EF 47.5 % (63-77) Right Ventricle RVIDd 6.2 cm (2.6-4.3) LA Sng Plane LA Area 31.2 cm2 (8.8-23.4) LA Vol 110.4 ml Index 53.3 ml/m LA LngAx 7.3 cm RA Sng Plane RA Area 23.6 cm2 (8.3-19.5) RA Vol 77.9 ml Index 37.7 ml/m RA LngAx 7 cm DOPPLER LVOT Stroke Vol LVOT 2.3 cm LVOT CO 5.4 l/min LVOT TVI 21.5 cm LVOT CI 2.6 l/m/m2 LVOT Tm 302 msec HR 60 bpm LVOT SV 89.3 ml MV For Flow/Valve Assess MV pkVel 144.6 cm/s MV Dec T 296 msec MV pkPG 8.4 mmHg MV TVI 42.3 cm MV Mean G 2.7 mmHg MV Area P1/2t 2.5 cm2 (4-6) WALL MOTION: RESTING WALL MOTION: Basal Anterolateral, Mid Anterolateral vidal are akinetic. Basal Inferior, Basal Inferolateral, Mid Inferior, Mid Inferolateral, Apical Lateral vidal are hypokinetic. Apical Inferior, Apical vidal are mildly hypokinetic. Normal in all other vidal. Wall Index=1.6 Signed 03/29/2017 03:24 PM Makenna Bruce MD Performing Organization Address City/State/Zipcode Phone Number [facility] [phone] [place] [address] after 03/19/2017 Insurance Payer Benefit Plan / Group Subscriber ID Type Phone Address [employer] MEDICARE [employer] MEDICARE xxxxxxxxx O Advance Directives Patient has advance care planning documents on file. For more information, please contact:Ricardo Arce[address] [place] [address]
--- NOTE | 2018-03-20 16:42 | RAD REPORT ---
EXAM DESCRIPTION: RAD - Knee Left 3 View - 03/20/2018 4:25 pm CLINICAL HISTORY: Left knee pain and swelling COMPARISON: None. FINDINGS: No fracture, dislocation or periosteal reaction.Small joint effusion is present. No joint space narrowing. No soft tissue abnormality. Arterial tree calcifications are present. IMPRESSION: Small left knee joint effusion with no acute bone or joint finding otherwise noted. Clinical concerns for internal derangement or occult bony injury could be further assessed with MR im aging.
--- NOTE | 2018-03-20 17:04 | EDPHYS ---
Physician Documentation [facility] Name: Isaias Frances Age: 78 yrs Sex: Male : 1940 Arrival Date: 03/20/2018 Time: 15:21 Bed 16 Private MD: None, None ED Physician Odell Burns HPI: 03/20 15:57 This 78 yrs old Male presents to ER via Ambulatory with complaints of Knee jr8 Injury. 15:57 The patient presents with pain, swelling, tenderness. The complaints affect the left jr8 knee. Context: The problem was sustained outdoors, resulted from a repetitive motion. Onset: The symptoms/episode began/occurred gradually, 2 day(s) ago. Modifying factors: The symptoms are alleviated by nothing. the symptoms are aggravated by movement, weight bearing. Associated signs and symptoms: The patient has no apparent associated signs or symptoms. Severity of symptoms: At their worst the symptoms were mild, in the emergency department the symptoms are unchanged. The patient has not experienced similar symptoms in the past. The patient has not recently seen a physician. Patient stated that he had been in [place] for vacation. Over the past couple of days noticed left knee swelling and pain with bending and motion. Denies any calf pain or swelling. Denies trauma to knee. Stated that he was walking a lot on uneven ground while there . Historical: - Allergies: 15:37 No Known Allergies; ss - PMHx: 15:37 Hypertension; stomach CA; ss - PSHx: 15:37 nephrectomy; pacemaker; ss - Immunization history:: Adult Immunizations up to date. - Social history:: Smoking status: Patient/guardian denies using tobacco. - Ebola Screening: : Patient denies exposure to infectious person Patient denies travel to an Ebola-affected area in the 21 days before illness onset. ROS: 15:57 Eyes: Negative for injury, pain, redness, and discharge, ENT: Negative for injury, jr8 pain, and discharge, Neck: Negative for injury, pain, and swelling, Cardiovascular: Negative for chest pain, palpitations, and edema, Respiratory: Negative for shortness of breath, cough, wheezing, and pleuritic chest pain, Abdomen/GI: Negative for abdominal pain, nausea, vomiting, diarrhea, and constipation, Back: Negative for injury and pain, Skin: Negative for injury, rash, and discoloration, Neuro: Negative for headache, weakness, numbness, tingling, and seizure. 15:57 MS/extremity: Positive for pain, swelling, tenderness, of the left knee. Exam: 15:57 Eyes: Pupils equal round and reactive to light, extra-ocular motions intact. Lids and jr8 lashes normal. Conjunctiva and sclera are non-icteric and not injected. Cornea within normal limits. Periorbital areas with no swelling, redness, or edema. ENT: Nares patent. No nasal discharge, no septal abnormalities noted. Tympanic membranes are normal and external auditory canals are clear. Oropharynx with no redness, swelling, or masses, exudates, or evidence of obstruction, uvula midline. Mucous membranes moist. Neck: Trachea midline, no thyromegaly or masses palpated, and no cervical lymphadenopathy. Supple, full range of motion without nuchal rigidity, or vertebral point tenderness. No Meningismus. Cardiovascular: Regular rate and rhythm with a normal S1 and S2. No gallops, murmurs, or rubs. Normal PMI, no JVD. No pulse deficits. Respiratory: Lungs have equal breath sounds bilaterally, clear to auscultation and percussion. No rales, rhonchi or wheezes noted. No increased work of breathing, no retractions or nasal flaring. Abdomen/GI: Soft, non-tender, with normal bowel sounds. No distension or tympany. No guarding or rebound. No evidence of tenderness throughout. Back: No spinal tenderness. No costovertebral tenderness. Full range of motion. Skin: Warm, dry with normal turgor. Normal color with no rashes, no lesions, and no evidence of cellulitis. Neuro: Awake and alert, GCS 15, oriented to person, place, time, and situation. Cranial nerves II-XII grossly intact. Motor strength 5/5 in all extremities. Sensory grossly intact. Cerebellar exam normal. Normal gait. 15:57 Musculoskeletal/extremity: Extremities: grossly normal except: noted in the left knee: pain, swelling, tenderness, anterior knee, ROM: intact in all extremities, Circulation is intact in all extremities. Sensation intact. DVT Exam: no pain, no swelling, no tenderness, negative Homans' sign noted on exam, no appreciated bluish discoloration, no erythema, no increased warmth, Calves: are non-tender, have equal circumference. Vital Signs: 15:37 BP 146 / 85; Pulse 82; Resp 17; Temp 97.2(TE); Pulse Ox 97% on R/A; Weight 88.45 kg; ss Height 5 ft. 10 in. (177.80 cm); Pain 8/10; 16:30 BP 139 / 81; Pulse 77; Resp 17; Pulse Ox 100% on R/A; rb1 17:20 BP 130 / 77; Pulse 60; Resp 19; Pulse Ox 97% on R/A; rb1 15:37 Body Mass Index 27.98 (88.45 kg, 177.80 cm) ss MDM: 15:26 Patient medically screened. jr8 17:03 Data reviewed: vital signs, nurses notes, radiologic studies, plain films, and as a jr8 result, I will discharge patient. Data interpreted: Pulse oximetry: on room air is 97 %. Interpretation: normal. Counseling: I had a detailed discussion with the patient and/or guardian regarding: the historical points, exam findings, and any diagnostic results supporting the discharge/admit diagnosis, radiology results, the need for outpatient follow up, a orthopedic surgeon, to return to the emergency department if symptoms worsen or persist or if there are any questions or concerns that arise at home. 03/20 15:56 Order name: XRAY Knee LEFT 3 view; Complete Time: 17:03 jr8 03/20 17:04 Order name: Zack wrap-joint; Complete Time: 17:28 jr8 Administered Medications: No medications were administered Disposition: 19:05 Co-signature as Attending Physician, Odell Burns MD I agree with the assessment and kdr plan of care. Disposition: 03/20/18 17:04 Discharged to Home. Impression: Effusion of joint, Pain in left knee. - Condition is Stable. - Discharge Instructions: Arthritis, Knee Pain. - Prescriptions for Mobic 7.5 mg Oral Tablet - take 1 tablet by ORAL route once daily take with food; 20 tablet. - Medication Reconciliation Form, Thank You Letter, Antibiotic Education, Prescription Opioid Use form. - Follow up: Yefri Taylor MD; When: 5 - 6 days; Reason: Recheck today's complaints, Continuance of care, Re-evaluation by your physician. - Problem is new. - Symptoms have improved. Signatures: Dispatcher [employer] EDOK Odell Burns MD MD kdr Smirch, Shelby, DELANEY RN ss Bandar Constantino PA PA jr8 Tammy Rojas, RN RN rb1 Corrections: (The following items were deleted from the chart) 17:25 17:04 03/20/2018 17:04 Discharged to Home. Impression: Effusion of joint; Pain in left rb1 knee. Condition is Stable. Forms are Medication Reconciliation Form, Thank You Letter, Antibiotic Education, Prescription Opioid Use. Follow up: Yefri Taylor; When: 5 - 6 days; Reason: Recheck today's complaints, Continuance of care, Re-evaluation by your physician. Problem is new. Symptoms have improved. jr8
--- NOTE | 2018-03-20 17:04 | ER ---
Nurse's Notes [facility] Name: Isaias Frances Age: 78 yrs Sex: Male : 1940 Arrival Date: 03/20/2018 Time: 15:21 Bed 16 Private MD: None, None Diagnosis: Effusion of joint;Pain in left knee Presentation: 03/20 15:32 Presenting complaint: Patient states: L knee pain and swelling that began 2-3 days ago. ss Denies injury. Transition of care: patient was not received from another setting of care. Onset of symptoms was February 2018. Risk Assessment: Do you want to hurt yourself or someone else? Patient reports no desire to harm self or others. Initial Sepsis Screen: Does the patient meet any 2 criteria? No. Patient's initial sepsis screen is negative. Does the patient have a suspected source of infection? No. Patient's initial sepsis screen is negative. Care prior to arrival: None. 15:32 Method Of Arrival: Ambulatory ss 15:32 Acuity: ANGELIA 4 ss Triage Assessment: 15:30 Injury Description: Pt. denies injury. rb1 Historical: - Allergies: 15:37 No Known Allergies; ss - PMHx: 15:37 Hypertension; stomach CA; ss - PSHx: 15:37 nephrectomy; pacemaker; ss - Immunization history:: Adult Immunizations up to date. - Social history:: Smoking status: Patient/guardian denies using tobacco. - Ebola Screening: : Patient denies exposure to infectious person Patient denies travel to an Ebola-affected area in the 21 days before illness onset. Screenin:30 Abuse screen: Denies threats or abuse. Nutritional screening: No deficits noted. rb1 Tuberculosis screening: No symptoms or risk factors identified. Fall Risk None identified. Assessment: 15:30 General: Appears in no apparent distress. comfortable, Behavior is calm, cooperative, rb1 Denies fever, feeling ill. Pain: Complains of pain in left knee Pain currently is 8 out of 10 on a pain scale. Pain began 2-3 days ago. Aggravated by weight bearing. Neuro: Level of Consciousness is awake, alert, obeys commands, Oriented to person, place, time, situation. Cardiovascular: Capillary refill < 3 seconds is brisk in bilateral fingers. Respiratory: Airway is patent Respiratory effort is even, unlabored, Respiratory pattern is regular, symmetrical. GI: No signs and/or symptoms were reported involving the gastrointestinal system. : No signs and/or symptoms were reported regarding the genitourinary system. Derm: Skin is pink, warm \T\ dry. Musculoskeletal: Range of motion: intact in all extremities, Pt. denies injury Swelling present in left knee. 16:30 Reassessment: Patient appears in no apparent distress at this time. No changes from rb1 previously documented assessment. 17:20 Reassessment: Patient and/or family updated on plan of care and expected duration. Pain rb1 level reassessed. Patient is alert, oriented x 3, equal unlabored respirations, skin warm/dry/pink. Applied brisa wrap to left knee, pt. tolerated well. Vital Signs: 15:37 BP 146 / 85; Pulse 82; Resp 17; Temp 97.2(TE); Pulse Ox 97% on R/A; Weight 88.45 kg; ss Height 5 ft. 10 in. (177.80 cm); Pain 8/10; 16:30 BP 139 / 81; Pulse 77; Resp 17; Pulse Ox 100% on R/A; rb1 17:20 BP 130 / 77; Pulse 60; Resp 19; Pulse Ox 97% on R/A; rb1 15:37 Body Mass Index 27.98 (88.45 kg, 177.80 cm) ED Course: 15:21 Patient arrived in ED. sb2 15:22 None, None is Private Physician. sb2 15:26 Bandar Constantino PA is PHCP. jr8 15:26 Odell Burns MD is Attending Physician. jr8 15:30 Patient has correct armband on for positive identification. Placed in gown. Bed in low rb1 position. Call light in reach. Side rails up X 1. Pulse ox on. NIBP on. Warm blanket given. 15:36 Triage completed. ss 15:37 Arm band placed on right wrist. ss 16:04 Tammy Rojas, DELANEY is Primary Nurse. rb1 16:29 XRAY Knee LEFT 3 view In Process Unspecified. EDMS 17:03 Yefri aTylor MD is Referral Physician. jr8 17:25 No provider procedures requiring assistance completed. Patient did not have IV access rb1 during this emergency room visit. Administered Medications: No medications were administered Outcome: 17:04 Discharge ordered by . jr8 17:25 Patient left the ED. rb1 17:25 Discharged to home via wheelchair, with friend. rb1 17:25 Condition: stable 17:25 Discharge instructions given to patient, Instructed on discharge instructions, follow up and referral plans. medication usage, Demonstrated understanding of instructions, follow-up care, medications, Prescriptions given X 1. Signatures: Dispatcher [employer] EDMS Hailee Betts RN RN ss Roszak, Josh, PA PA jr8 Tammy Rojas RN RN rb1 Laurie Forrest sb2
== END 2018-03-20 17:25 | disposition home or self-care (01) ==
LOC: ER 15:17
DX: M25.562 Pain in left knee (principal); M25.462 Effusion, left knee; I10 Essential (primary) hypertension; C16.9 Malignant neoplasm of stomach, unspecified; Z95.0 Presence of cardiac pacemaker
CPT/HCPCS: 99283

== ENCOUNTER 2018-03-27 11:49 | Emergency (ER) | payer OTHER ==
--- OUTSIDE RECORDS SUMMARY | 2018-03-27 11:55 | XMS REPORT | Clinical Summary ---
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 ROBOTIC ASSISTED Carlos mendoza MD LAPARSCOPIC RIGHT RADICAL NEPHRECTOMY 08/06/2017 [facility] (Primary Dx); - Medicine Carlos mendoza MD Right renal mass 08/09/2017 08/02/2017 Hospital Encounter Radiology Carlos Wu MD 08/01/2017 Hospital Encounter Radiology Satn[facility]inathal[facility] Preop testing Carlos mendoza MD 08/01/2017 Pre-Admit Testing Pre-Admission [facility] Preop testing ( Primary Appointment Testing Carlos mendoza MD Dx) 08/01/2017 Office Visit Urology Phusinathalie Right renal mass Carlos mendoza MD (Primary Dx) 07/29/2017 Telephone Urology Dionna Wilcox MA 07/11/2017 Office Visit Cardiology Jeff, Coronary arteriosclerosis in manzanita artery (Primary Dx); Julito Ortiz, Non-rheumatic mitral regurgitation; Nonischemic congestive cardiomyopathy 07/11/2017 Orders Only Urology Samantha Heath MA 07/10/2017 Office Visit Urology Phus[place]ie Right renal mass Carlos mendoza MD (Primary Dx) 04/11/2017 Office Visit Cardiology Jeff, Mitral valve insufficiency, unspecified etiology (Primary Dx); Julito Ortiz, Coronary arteriosclerosis in manzanita artery; Nonischemic congestive cardiomyopathy 04/03/2017 Surgery Procedural Jeff, Cv left heart cath w Cardiology Julito Ortiz, lv gram cors [[id number] (CPT)] 04/03/2017 Hospital Encounter Nayan Huff, 04/05/2017 04/02/2017 Orders Only Janusz Aguilar, Pre-procedure lab exam (Primary Dx); Julito Ortiz, Angina at rest; 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 04/02/2017 Orders Only Julito Huff MD 03/28/2017 Multidisciplinary Visit Cardiology Jeff, S/P mitral valve clip implantation (Primary Dx); Julito Ortiz, Essential hypertension; Coronary arteriosclerosis in manzanita artery 03/28/2017 Hospital Encounter Procedural Jeff Mitral valve disorder; Janusz Ortiz, S/P mitral valve clip implantation after 03/26/2017 Family History Medical History Relation Name Comments [...] INFLUENZA VACCINE 09/18/2017 Implants Implanted Type Area Animal Doctor Device Shelf Model / Identifier Expiration Serial / Date Lot Clip Ligtng Hem-O-Braden Endoscpc Aplr Ply Lg - [id number] Surgical N/A: N/A WECK CLOSURE [id number] / Implanted: 08/06/2017 (Quantity not on file) Implants; SYSTEMS / Expanders; Extenders; Surgical Wires Clip Ligtng Weck Hem-O-Braden Endoscpc Aplr Xl Plymr - [id number] Surgical N/A: N/A WECK CLOSURE [id number] / Implanted: 08/06/2017 (Quantity not on file) Implants; SYSTEMS / Expanders; Extenders; Surgical Wires Clip Ligtng Hem-O-Braden Endoscpc Aplr Plymr Lg - [id number] Surgical N/A: N/A WECK CLOSURE [id number] / Implanted: 08/06/2017 (Quantity not on file) Implants; SYSTEMS / Expanders; Extenders; Surgical Wires Clip Ligtng Heather Hem-O-Braden Endoscpc Aplr Xl Plymr - [id number] Surgical N/A: N/A HEATHER CLOSURE [id number] / Implanted: 08/06/2017 (Quantity not on file) [...] CDT procedure are in the results section. KY AN ELECTIVE Routine 08/06/2017 2:42 ENDOTRACHEAL AIRWAY PM CDT Procedure Note - Yaron Mccormack CRNA - 08/06/2017 2:42 PM CDT Airway Performed by: YARON MCCORMACK Authorized by: MINE SANCHEZ Location: OR Urgency: Elective Difficult Airway: No Resident/DOORPERSON/AA: YARON MCCORMACK Performed by: resident/DOORPERSON/AA Preoxygenated with 100% O2: Yes Mask Ventilation: [...] 9:49 Mitral valve Results for this AM ADVANCED PRACTICE NURSE insufficiency, procedure are in unspecified etiology the results section. FLOW CYTOMETRY Routine 04/05/2017 3:04 Results for this EVALUATION PM ADVANCED PRACTICE NURSE procedure are in the results section. US ABDOMEN COMPLETE STAT 04/05/2017 1:19 Results for this PM ADVANCED PRACTICE NURSE procedure are in the results section. NM MYOCARDIAL Routine 04/05/2017 11:31 Results for this PERFUSION STRESS REST AM ADVANCED PRACTICE NURSE procedure are in 1 DAY the results section. CV STRESS TEST NUCLEAR Routine 04/05/2017 11:31 Results for this CARDIO AM ADVANCED PRACTICE NURSE procedure are in the results section. ZZESTIMATED GFR Routine 04/05/2017 4:36 Results for this AM ADVANCED PRACTICE NURSE procedure are in the results section. LIPID PANEL Routine 04/05/2017 4:36 Results for this AM ADVANCED PRACTICE NURSE procedure are in the results section. HEMOGLOBIN A1C Routine 04/05/2017 4:36 Results for this AM ADVANCED PRACTICE NURSE procedure are in the results section. CBC HEMOGRAM Routine 04/05/2017 4:36 Results for this AM ADVANCED PRACTICE NURSE procedure are in the results section. BASIC METABOLIC PANEL Routine 04/05/2017 4:36 Results for this AM ADVANCED PRACTICE NURSE procedure are in the results section. INHIBIT PT, PTT MIX Routine 04/05/2017 4:36 Results for this AM ADVANCED PRACTICE NURSE procedure are in the results section. PARTIAL THROMBOPLASTIN Routine 04/05/2017 4:36 Results for this TIME (PTT) AM ADVANCED PRACTICE NURSE procedure are in the results section. HIV 1, 2 ANTIBODY Routine 04/05/2017 4:36 Results for this AM ADVANCED PRACTICE NURSE procedure are in the results section. HEPATITIS ACUTE PANEL Routine 04/05/2017 4:36 Results for this AM ADVANCED PRACTICE NURSE procedure are in the results section. C-REACTIVE PROTEIN Routine 04/05/2017 4:36 Results for this AM ADVANCED PRACTICE NURSE procedure are in the results section. SEDIMENTATION RATE Routine 04/05/2017 4:36 Results for this AM ADVANCED PRACTICE NURSE procedure are in the results section. NAOMI Routine 04/05/2017 4:36 Results for this AM ADVANCED PRACTICE NURSE procedure are in the results section. PERIPHERAL SMEAR Routine 04/04/2017 4:44 Results for this PM ADVANCED PRACTICE NURSE procedure are in the results section. CTA CORONARY ARTERIES Routine 04/04/2017 10:01 Results for this W CONTRAST AM ADVANCED PRACTICE NURSE procedure are in the results section. CBC HEMOGRAM Routine 04/04/2017 5:35 Results for this AM ADVANCED PRACTICE NURSE procedure are in the results section. ZZESTIMATED GFR Routine 04/04/2017 4:00 Results for this AM ADVANCED PRACTICE NURSE procedure are in the results section. BASIC METABOLIC PANEL Routine 04/04/2017 4:00 Results for this AM ADVANCED PRACTICE NURSE procedure are in the results section. CV LEFT HEART CATH LV Routine 04/03/2017 4:18 Results for this GRAM WITH CORS PM ADVANCED PRACTICE NURSE procedure are in the results section. HC COMPLETE BLD COUNT STAT 04/03/2017 10:24 Results for this W/AUTO DIFF AM ADVANCED PRACTICE NURSE procedure are in the results section. ECG 12-LEAD STAT 04/03/2017 10:21 Results for this AM ADVANCED PRACTICE NURSE procedure are in the results section. ZZESTIMATED GFR STAT 04/03/2017 9:43 Results for this AM ADVANCED PRACTICE NURSE procedure are in the results section. BASIC METABOLIC PANEL STAT 04/03/2017 9:43 Results for this AM ADVANCED PRACTICE NURSE procedure are in the results section. ECG 12-LEAD Routine 03/28/2017 2:33 S/P mitral valve Results for this PM ADVANCED PRACTICE NURSE clip implantation procedure are in the results section. ECHOCARDIOGRAM 2D Routine 03/28/2017 1:45 Mitral valve Results for this COMPLETE W MMODE PM ADVANCED PRACTICE NURSE disorder procedure are in SPECTRAL COLOR DOPPLER S/P mitral valve the results ([id number]) clip implantation section. after 03/26/2017 Results Basic metabolic panel (08/14/2017 11:46 AM CDT)Only the most recent of8 resultswithin the time period is included. Glucose 88 65 - 99 mg/dL [facility] Comment: [facility] Fasting reference interval BUN, whole blood 30 (H) 7 - 25 mg/dL [facility] Creatinine 2.39 (H) 0.70 - 1.18 [facility] Comment: mg/dL [facility]XIS For patients >49 years of age, the reference limit for Creatinine is approximately 13% higher for people identified as -[place]ib[place]ian. EGFR Non-Afr. [place]ian 25 (L) > OR=60 [facility] mL/min/1.73m2 [facility] EGFR 29 (L) > OR=60 [facility] mL/min/1.73m2 [facility] BUN/creatinine ratio 13 6 - 22 (calc) [facility] Sodium 139 135 - 146 mmol/L [facility] Potassium 4.4 3.5 - 5.3 mmol/L [facility] Chloride 105 98 - 110 mmol/L [facility] CO2 24 20 - 31 mmol/L [facility] Calcium 8.7 8.6 - 10.3 mg/dL [facility] Specimen Blood Resulting Agency Comment Performing Organization Information: Site ID: [id number] Name: [facility] Address: [address] [place] [id number] Director: Shante Lerner Performing Organization Address City/State/Zipcode Phone Number [facility] [address] [id number] Estimated GFR (08/09/2017 4:00 AM CDT)Only the most recent of8 resultswithin the time period is included. GFR Non Af Amer 28 (A) mL/min/1.73 m2 [facility] DEPARTMENT OF PATHOLOGY AND GENOMIC MEDICINE GFR Af Amer 33 (A) mL/min/1.73 m2 [facility] DEPARTMENT OF Comment: PATHOLOGY AND GENOMIC Chronic [...] Americans. Specimen Plasma specimen Performing Organization Address [facility] Phone Number [facility] DEPARTMENT OF PATHOLOGY AND [address] [place] [address] Hemoglobin (08/09/2017 12:40 AM CDT)Only the most recent of4 resultswithin the time period is included. HGB 11.7 (L) 14.0 - 18.0 g/dL [facility] DEPARTMENT OF PATHOLOGY AND GENOMIC MEDICINE Specimen Blood Performing Organization Address [facility] Phone Number [facility] DEPARTMENT OF PATHOLOGY AND [address] [place] [address] Hematocrit (08/09/2017 12:40 AM CDT)Only the most recent of4 resultswithin the time period is included. HCT 36.0 (L) 41.0 - 51.0 % [facility] DEPARTMENT OF PATHOLOGY AND GENOMIC MEDICINE Specimen Blood Performing Organization Address [facility] Phone Number [facility] DEPARTMENT OF PATHOLOGY AND [address] [place] [address] Surgical pathology request (08/06/2017 5:49 PM CDT) [facility] DEPARTMENT OF PATHOLOGY AND GENOMIC MEDICINE Surgical pathology report See link below for PDF [facility] DEPARTMENT OF Lab Report PATHOLOGY AND GENOMIC MEDICINE Result status This is Final Report to [facility] DEPARTMENT OF [id number] PATHOLOGY AND GENOMIC MEDICINE Performing Organization Address [facility] Phone Number [facility] DEPARTMENT OF PATHOLOGY AND [address] [place] [address] GENOMIC MEDICINE XR Chest 2 Vw (08/01/2017 2:53 PM CDT) Narrative Performed At Examination: Chest 2 views [facility] CLINICAL HISTORY: Z01.818 Encounter for other preprocedural examination, preop COMPARISON: None. FINDINGS: The heart is normal in size. AV sequential pacemaker electrodes are in satisfactory position. IMPRESSION: No pneumothorax. Lungs are clear. Pleural surfaces are smooth. [id number] Procedure Note Hm Interface, Radiology Results Incoming - 08/01/2017 3:00 PM CDT Examination: Chest 2 views CLINICAL HISTORY: Z01.818 Encounter for other preprocedural examination, preop COMPARISON: None. FINDINGS: The heart is normal in size. AV sequential pacemaker electrodes are in satisfactory position. IMPRESSION: No pneumothorax. Lungs are clear. Pleural surfaces are smooth. [id number] Performing Organization Address [facility] Cent[facility]ode Phone Number [facility] [address] [place] [address] Urine culture (08/01/2017 2:00 PM CDT) Urine culture SEE COMMENTComment: Bacteriuria [facility] DEPARTMENT OF PATHOLOGY screen negative. AND GENOMIC MEDICINE Performing Organization Address [facility] Phone Number [facility] DEPARTMENT OF PATHOLOGY AND [address] [place] [address] GENOMIC MEDICINE ECG Pre/Post Op (08/01/2017 1:51 PM CDT) Ventricular rate 65 [facility] Atrial rate 65 [facility] [place] interval 82 [facility] QRSD interval 186 [facility] QT interval 454 [facility] QTC interval 472 [facility] QRS axis 1 -56 [facility] T wave axis 266 [facility] EKG impression Demand pacemaker, interpretation is based on intrinsic rhythm- Sinus rhythm with short KY with premature ventricular complexes or fusion complexes-Left axis deviation-Right bundle branch block-Marked T wave abnormality, consider inferolateral [facility] ischemia-Abnormal ECG-In automated comparison with ECG of 01-AUG-2017 13:50,- KY interval has decreased-Electronically Signed By Julito Aguilar MD ([id number]) on 2:22:24 PM Performing Organization Address [facility] Phone Number [facility] [address] [place] [address] Urinalysis screen and microscopy, with reflex to culture (08/01/2017 1:44 PM CDT) Specimen site Clean catch [facility] DEPARTMENT OF PATHOLOGY AND GENOMIC MEDICINE Color, UA Yellow [facility] DEPARTMENT OF PATHOLOGY AND GENOMIC MEDICINE Appearance, UA Clear [facility] DEPARTMENT OF PATHOLOGY AND GENOMIC MEDICINE Specific gravity, UA 1.021 1.001 - 1.035 [facility] DEPARTMENT OF PATHOLOGY AND GENOMIC MEDICINE pH, UA 6.0 5.0 - 8.5 [facility] DEPARTMENT OF PATHOLOGY AND GENOMIC MEDICINE Protein, UA Negative Negative [facility] DEPARTMENT OF PATHOLOGY AND GENOMIC MEDICINE Glucose, UA Negative Negative [facility] DEPARTMENT OF PATHOLOGY AND GENOMIC MEDICINE Ketones, UA Negative Negative [facility] DEPARTMENT OF PATHOLOGY AND GENOMIC MEDICINE Bilirubin, UA Negative Negative [facility] DEPARTMENT OF PATHOLOGY AND GENOMIC MEDICINE Blood, UA Negative Negative [facility] DEPARTMENT OF PATHOLOGY AND GENOMIC MEDICINE Nitrite, UA Negative Negative [facility] DEPARTMENT OF PATHOLOGY AND GENOMIC MEDICINE Urobilinogen, UA <2.0 <2.0 [facility] DEPARTMENT OF PATHOLOGY AND GENOMIC MEDICINE Leukocyte esterase, UA Negative Negative [facility] DEPARTMENT OF PATHOLOGY AND GENOMIC MEDICINE WBC, UA 1 0 - 1 /HPF [facility] DEPARTMENT OF PATHOLOGY AND GENOMIC MEDICINE RBC, UA 1 0 - 5 /HPF [facility] DEPARTMENT OF PATHOLOGY AND GENOMIC MEDICINE Bacteria, UA None seen None seen [facility] DEPARTMENT OF PATHOLOGY AND GENOMIC MEDICINE Yeast, UA None seen [facility] DEPARTMENT OF PATHOLOGY AND GENOMIC MEDICINE Yeast with pseudohyphae, UA None seen [facility] DEPARTMENT OF PATHOLOGY AND GENOMIC MEDICINE Hyaline casts, UA 6 /LPF [facility] DEPARTMENT OF PATHOLOGY AND GENOMIC MEDICINE Specimen Urine Performing Organization Address [facility] [place] Phone Number [facility] DEPARTMENT OF PATHOLOGY AND [address] [place] [phone] [facility] Partial thromboplastin time, activated (08/01/2017 1:44 PM CDT)Only the most recent of2 resultswithin the time period is included. PTT 29.7 23.0 - 36.0 sec [facility] DEPARTMENT OF PATHOLOGY Comment: AND GENOMIC MEDICINE PTT therapeutic range for unfractionated heparin is 61.0-112.0 seconds which corresponds to Anti-Xa 0.3-0.7 U/ml. Specimen Blood Performing Organization Address [facility] Phone Number [facility] DEPARTMENT OF PATHOLOGY AND [address] [place] [phone] [facility] Prothrombin time with INR (08/01/2017 1:44 PM CDT) Prothrombin time 15.0 12.0 - 15.0 sec [facility] DEPARTMENT OF PATHOLOGY AND GENOMIC MEDICINE INR 1.2 [facility] DEPARTMENT OF Comment: PATHOLOGY AND GENOMIC The International Normalized Ratio (INR) is a therapeutic MEDICINE monitoring tool for patients who are stable on oral anticoagulant therapy. An INR of 2.0-3.0 is suggested for deep vein thrombosis/pulmonary embolism. Specimen Blood Performing Organization Address City/[facility] Phone Number [facility] DEPARTMENT OF PATHOLOGY AND [address] [place] [phone] [facility] CBC hemogram (08/01/2017 1:44 PM CDT)Only the most recent of3 resultswithin the time period is included. WBC 5.64 4.50 - 11.00 k/uL [facility] DEPARTMENT OF PATHOLOGY AND GENOMIC MEDICINE RBC 4.43 4.40 - 6.00 m/uL [facility] DEPARTMENT OF PATHOLOGY AND GENOMIC MEDICINE HGB 13.6 (L) 14.0 - 18.0 g/dL [facility] DEPARTMENT OF PATHOLOGY AND GENOMIC MEDICINE HCT 41.7 41.0 - 51.0 % [facility] DEPARTMENT OF PATHOLOGY AND GENOMIC MEDICINE MCV 94.1 82.0 - 100.0 fL [facility] DEPARTMENT OF PATHOLOGY AND GENOMIC MEDICINE MCH 30.7 27.0 - 34.0 pg [facility] DEPARTMENT OF PATHOLOGY AND GENOMIC MEDICINE MCHC 32.6 31.0 - 37.0 g/dL [facility] DEPARTMENT OF PATHOLOGY AND GENOMIC MEDICINE RDW - SD 47.5 37.0 - 55.0 fL [facility] DEPARTMENT OF PATHOLOGY AND GENOMIC MEDICINE MPV 12.5 8.8 - 13.2 fL [facility] DEPARTMENT OF PATHOLOGY AND GENOMIC MEDICINE Platelet count 78 (L) 150 - 400 k/uL [facility] DEPARTMENT OF PATHOLOGY AND GENOMIC MEDICINE Nucleated RBC 0.00 /100 WBC [facility] DEPARTMENT OF PATHOLOGY AND GENOMIC MEDICINE Specimen Blood Performing Organization Address City/[facility] Phone Number [facility] DEPARTMENT OF PATHOLOGY AND [address] [place] [phone] [employer] Prepare RBC (08/01/2017 1:44 PM CDT) Product name Red Blood Cells -1, [facility] DEPARTMENT OF Leukored PATHOLOGY AND GENOMIC MEDICINE Unit number [id number] [facility] DEPARTMENT OF PATHOLOGY AND GENOMIC MEDICINE Product code [id number] [facility] DEPARTMENT OF PATHOLOGY AND GENOMIC MEDICINE Dispense status Returned to BB not [facility] DEPARTMENT OF transfused PATHOLOGY AND GENOMIC MEDICINE Blood expiration date [facility] DEPARTMENT OF PATHOLOGY AND GENOMIC MEDICINE Blood type code 5100 [facility] DEPARTMENT OF PATHOLOGY AND GENOMIC MEDICINE Blood type O POSITIVE [facility] DEPARTMENT OF PATHOLOGY AND GENOMIC MEDICINE Product name Red Blood Cells -1, [facility] DEPARTMENT OF Leukored PATHOLOGY AND GENOMIC MEDICINE Unit number [id number] [facility] DEPARTMENT OF PATHOLOGY AND GENOMIC MEDICINE Product code [id number] [facility] DEPARTMENT OF PATHOLOGY AND GENOMIC MEDICINE Dispense status Returned to BB not [facility] DEPARTMENT OF transfused PATHOLOGY AND GENOMIC MEDICINE Blood expiration date [facility] DEPARTMENT OF PATHOLOGY AND GENOMIC MEDICINE Blood type code 5100 [facility] DEPARTMENT OF PATHOLOGY AND GENOMIC MEDICINE Blood type O POSITIVE [facility] DEPARTMENT OF PATHOLOGY AND GENOMIC MEDICINE Performing Organization Address City/[facility] Phone Number [facility] DEPARTMENT OF PATHOLOGY AND [address] [place] [address] GENOMIC MEDICINE Type and screen (08/01/2017 1:44 PM CDT) ABO grouping O [facility] DEPARTMENT OF PATHOLOGY AND GENOMIC MEDICINE Rh type POS [facility] DEPARTMENT OF PATHOLOGY AND GENOMIC MEDICINE Antibody screen (gel) NEG [facility] DEPARTMENT OF PATHOLOGY AND GENOMIC MEDICINE Specimen Blood Performing Organization Address City/[facility] Phone Number [facility] DEPARTMENT OF PATHOLOGY AND [address] [place] [address] GENOMIC MEDICINE Comprehensive metabolic panel (08/01/2017 1:44 PM CDT) Sodium 142 135 - 148 mEq/L [facility] DEPARTMENT OF PATHOLOGY AND GENOMIC MEDICINE Potassium 4.5 3.5 - 5.0 mEq/L [facility] DEPARTMENT OF PATHOLOGY AND GENOMIC MEDICINE Chloride 109 98 - 112 mEq/L [facility] DEPARTMENT OF PATHOLOGY AND GENOMIC MEDICINE CO2 22 (L) 24 - 31 mEq/L [facility] DEPARTMENT OF PATHOLOGY AND GENOMIC MEDICINE Anion gap 11@ANIO 7 - 15 mEq/L [facility] DEPARTMENT OF PATHOLOGY AND GENOMIC MEDICINE BUN 24 (H) 8 - 23 mg/dL [facility] DEPARTMENT OF PATHOLOGY AND GENOMIC MEDICINE Creatinine 1.8 (H) 0.7 - 1.2 mg/dL [facility] DEPARTMENT OF PATHOLOGY AND GENOMIC MEDICINE Glucose 90 65 - 99 mg/dL [facility] DEPARTMENT OF PATHOLOGY AND GENOMIC MEDICINE Calcium 8.8 8.8 - 10.2 mg/dL [facility] DEPARTMENT OF PATHOLOGY AND GENOMIC MEDICINE Protein 6.3 6.3 - 8.3 g/dL [facility] DEPARTMENT OF Comment: PATHOLOGY AND GENOMIC 4.6-7.0 g/dL MEDICINE 1 week 4.4-7.6 g/dL 7 months-1year5.1-7.3 g/dL 1-2 years5.6-7.5 g/dL >3 years6.0-8.0 g/dL 18-150 6.3-8.3 g/dL Albumin 3.4 (L) 3.5 - 5.0 g/dL [facility] DEPARTMENT OF PATHOLOGY AND GENOMIC MEDICINE A/G ratio 1.2 0.7 - 3.8 [facility] DEPARTMENT OF PATHOLOGY AND GENOMIC MEDICINE Alkaline phosphatase 59 40 - 129 U/L [facility] DEPARTMENT OF PATHOLOGY AND GENOMIC MEDICINE AST 21 10 - 50 U/L [facility] DEPARTMENT OF PATHOLOGY AND GENOMIC MEDICINE ALT 16 5 - 50 U/L [facility] DEPARTMENT OF PATHOLOGY AND GENOMIC MEDICINE Total bilirubin 0.6 0.0 - 1.2 mg/dL [facility] DEPARTMENT OF PATHOLOGY AND GENOMIC MEDICINE Specimen Plasma specimen Performing Organization Address City/State/Zipcode Phone Number [facility] DEPARTMENT OF PATHOLOGY AND [address] [place] [phone] [facility] MEDICINE CT Abd/Pelvic External Study (05/30/2017 1:07 PM CDT) Narrative Performed At This exam was not acquired at a [employer] facility and has not been [facility] interpreted by a [employer] Provider.The exam was imported into our imaging system for comparisons purposes. Performing Organization Address City/[facility] Cent[facility] Phone Number [facility] [address] [place] [address] ECG 12 lead (04/11/2017 9:49 AM ADVANCED PRACTICE NURSE)Only the most recent of3 resultswithin the time period is included. Ventricular rate 68 [facility] Atrial rate 68 [facility] QRSD interval 196 [facility] QT interval 478 [facility] QTC interval 508 [facility] P axis 1 10 [facility] QRS axis 1 -55 [facility] T wave axis 253 [facility] EKG impression Demand pacemaker, interpretation is based on intrinsic rhythm- Sinus rhythm with premature ventricular complexes or fusion complexes- intermittent paced complexes-Abnormal ECG-In automated comparison with [facility] ECG of 03-APR-2017 10:21,-No significant change was found- : 26 AM Performing Organization Address City/State/Zipcode Phone Number [facility] [address] [place] [address] Flow cytometry evaluation (04/05/2017 3:04 PM ADVANCED PRACTICE NURSE) [facility] DEPARTMENT OF PATHOLOGY AND GENOMIC MEDICINE Flow cytometry evaluation See link below for PDF [facility] DEPARTMENT OF Lab Report PATHOLOGY AND GENOMIC MEDICINE Specimen Blood Performing Organization Address City/State/[facility] Phone Number [facility] DEPARTMENT OF PATHOLOGY AND [address] [place] [address] GENOMIC MEDICINE US Abdomen Complete (04/05/2017 1:19 PM ADVANCED PRACTICE NURSE) Narrative Performed At EXAM: US ABDOMEN COMPLETE [facility] CLINICAL DATA:liver spleen eval COMPARISON: NONE. FINDINGS: [...] with renal mass protocol for further evaluation.. [facility]-[id number] Procedure Note [facility], Radiology Results Incoming - 04/05/2017 1:30 PM ADVANCED PRACTICE NURSE EXAM: US ABDOMEN COMPLETE CLINICAL DATA: liver [...] with renal mass protocol for further evaluation.. [facility]-[id number] Performing Organization Address [facility] Phone Number [facility] [address] [place] [address] CV stress test (04/05/2017 11:31 AM ADVANCED PRACTICE NURSE) Resting HR 60 H MUSE Resting BP 177 [facility] MUSE Peak MET Achieved 1.0 [facility] MUSE Protocol Name SURAJ [facility] MUSE Time in Exercise Phase 00:01:00 [facility] Max Systolic BP 180 [facility] Max Diastolic BP 69 [facility] Max Heart Rate 78 [facility] Max Predicted Heart Rate 141 [facility] MUSE Target HR Formula (220 - Age)*100% [facility] MUSE Test Indication EVAL FOR ISCHEMIA [facility] MUSE Stress Test Impression -Waveform interpreted in report [facility] MUSE associated with image study. No interpretation is provided as part of this Stress ECG report.-Electronically Signed By Theodore SINGH, Abelardo Giraldo ([id number]), video effects editor Andie Gaming ([id number]) on 04/05/2017 9:12:07 AM Target HR 119.85 bpm [facility] MUSE Performing Organization Address [facility] Phone Number [facility] MUSE [address] [place] [address] Myocardial perfusion (04/05/2017 11:31 AM ADVANCED PRACTICE NURSE) Narrative Performed At [facility] Nuclear Cardiology and Cardiac CT [address] [place] [address] Myocardial Perfusion Imaging Report Stress ECG tracings are available in MUSE, EPIC and CV Web All ECG interpretations are included in this report Pat.Name:ISAIAS LAI Pat.ID:[id number] .Date: 04/05/2017 Refer.MD:JULITO AGUILAR MD Exam Time: 7:54:00 AM Study Type:Myocardial Perfusion Imaging Height:70inWeight: 195lb BSA: 2.07 m2 DOBAge:1940,77Y Sex: MALEBP:177/86 HR:60 bpmHCT: 43.8 % Nuclear Tech:JAROD Waterman, SHELLIE/JAROD Davies Pat. Stat.:Outpatient Room:D 101 Nuclear Event ID:[id number] Order ID:[id number] Reason for Study:[place] History / Clinical:Cardiomegaly/Cardiomyopathy, Coronary [...] Defect Size (% LV) 42% Total 12% Ytipwfio38% Scar Left Ventricular Perfusion Results There is [...] Radiology Results In - 04/05/2017 3:03 PM [facility] Nuclear Cardiology and Cardiac CT [address] [place] [address] Myocardial Perfusion Imaging Report Stress ECG tracings are available in [employer], [employer] and [employer] [facility] All ECG interpretations are included in this report Pat.Name: ISAIAS LAI Pat.ID: [id number] .Date: 04/05/2017 Refer.MD: JULITO AGUILAR MD Exam Time: 7:54:00 AM Study Type:Myocardial Perfusion Imaging Height: 70in Weight: 195lb BSA: 2.07 m2 Age: 11 1940,77Y Sex: MALE BP: 177/86 HR: 60 bpm HCT: 43.8 % Nuclear Tech:JAROD Waterman, ARRT/JAROD Davies Pat. Stat.:Outpatient Room: [address] Nuclear Event ID:[id number] Order ID: [id number] Reason for Study:[place] History / Clinical:Cardiomegaly/Cardiomyopathy, Coronary [...] PM Abelardo Jaimes MD Performing Organization Address City/State/Zipcode Phone Number [facility] [address] [place] [address] Inhibit PT, PTT mix (04/05/2017 4:36 AM ADVANCED PRACTICE NURSE) PT patient 0 minutes SEE COMMENT 12.0 - 15.0 sec [facility] DEPARTMENT OF Comment: PATHOLOGY AND GENOMIC Footnote--------- MEDICINE PT inhibitor screen (PT 1:1 mix) is only performed when PT > 15.0 seconds. Patient will be credited. PT 1:1 mix 0 minutes SEE COMMENTComment: 12.0 - 15.0 sec [facility] DEPARTMENT OF Footnote--------- PATHOLOGY AND GENOMIC MEDICINE PTT patient 0 minutes SEE COMMENT 23.0 - 36.0 sec [facility] DEPARTMENT OF Comment: PATHOLOGY AND GENOMIC Footnote--------- MEDICINE PTT inhibitor screen (PTT 1:1 mix) is only performed when PTT > 36.0 seconds. Patient will be credited. PTT 1:1 mix 0 minutes SEE COMMENTComment: 23.0 - 36.0 sec [facility] DEPARTMENT OF Footnote--------- PATHOLOGY AND GENOMIC MEDICINE PTT patient 60 minutes SEE COMMENTComment: 23.0 - 36.0 sec [facility] DEPARTMENT OF Footnote--------- PATHOLOGY AND GENOMIC MEDICINE PTT 1:1 mix 60 minutes SEE COMMENTComment: 23.0 - 36.0 sec [facility] DEPARTMENT OF Footnote--------- PATHOLOGY AND GENOMIC MEDICINE PT, PTT mix interpretation SEE COMMENTComment: sec [facility] DEPARTMENT OF Footnote--------- PATHOLOGY AND GENOMIC MEDICINE Specimen Blood Performing Organization Address City/[facility] Phone Number [facility] DEPARTMENT OF PATHOLOGY AND [address] [place] [address] Hepatitis acute panel (04/05/2017 4:36 AM ADVANCED PRACTICE NURSE) Hepatitis A IgM Non-reactive Non-reactive [facility] DEPARTMENT OF PATHOLOGY AND GENOMIC MEDICINE Hepatitis B core IgM Non-reactive Non-reactive [facility] DEPARTMENT OF PATHOLOGY AND GENOMIC MEDICINE Hepatitis B surface Ag Non-reactive Non-reactive [facility] DEPARTMENT OF PATHOLOGY AND GENOMIC MEDICINE Hepatitis C Ab Non-reactive Non-reactive [facility] DEPARTMENT OF PATHOLOGY AND GENOMIC MEDICINE Specimen Blood Performing Organization Address City/[facility] Phone Number [facility] DEPARTMENT OF PATHOLOGY AND [address] [place] [address] HIV 1, 2 antibody (04/05/2017 4:36 AM ADVANCED PRACTICE NURSE) HIV 1, 2 antibody Non-reactive Non-reactive [facility] DEPARTMENT OF Comment: PATHOLOGY AND GENOMIC Starting from May 17 2015, 4th generation HIV screening MEDICINE and confirmation assays are in use at [facility], consistent with the CDC-recommended [...] on the testing algorithm, please refer to: http://stacks.cdc.gov/view/cdc/52594. Specimen Blood Performing Organization Address [facility] Phone Number [facility] DEPARTMENT OF PATHOLOGY AND [address] [place] [address] Sedimentation rate (04/05/2017 4:36 AM ADVANCED PRACTICE NURSE) Sedimentation rate 4 0 - 10 mm/hr [facility] DEPARTMENT OF PATHOLOGY AND GENOMIC MEDICINE Specimen Blood Performing Organization Address [facility] Phone Number [facility] DEPARTMENT OF PATHOLOGY AND [address] [place] [address] C-reactive protein (04/05/2017 4:36 AM ADVANCED PRACTICE NURSE) CRP <0.30 0.00 - 0.50 mg/dL [facility] DEPARTMENT OF PATHOLOGY AND GENOMIC MEDICINE Specimen Plasma specimen Performing Organization Address [facility] Phone Number [facility] DEPARTMENT OF PATHOLOGY AND [address] [place] [address] NAOMI (04/05/2017 4:36 AM ADVANCED PRACTICE NURSE) NAOMI screen <1:80 <1:80 [facility] DEPARTMENT OF PATHOLOGY AND GENOMIC MEDICINE Specimen Blood Performing Organization Address [facility] Phone Number [facility] DEPARTMENT OF PATHOLOGY AND [address] [place] [address] Hemoglobin A1c (04/05/2017 4:36 AM ADVANCED PRACTICE NURSE) Hemoglobin A1C 5.5 4.0 - 5.6 % [facility] DEPARTMENT OF PATHOLOGY Comment: AND GENOMIC MEDICINE HbA1c cutoffs for diagnosing diabetes: 4.0% - 5.6%=normal 5.7% - 6.4%=increased risk for diabetes (prediabetes) >=6.5%=diabetes Goals for glycemic control (ADA 2016) < 7.0%Target for non adults with diabetes. More or less stringent targets may be appropriate for individual patients. <7.5% Target for Children and adolescents with type 1 diabetes. Specimen Blood Performing Organization Address City/State/Zipcode Phone Number [facility] DEPARTMENT OF PATHOLOGY AND [address] [place] [address] [facility] hopscout Lipid panel (04/05/2017 4:36 AM ADVANCED PRACTICE NURSE) Cholesterol 143 <200 mg/dL [facility] DEPARTMENT OF PATHOLOGY AND GENOMIC MEDICINE Triglycerides 73 <150 mg/dL [facility] DEPARTMENT OF PATHOLOGY AND GENOMIC MEDICINE HDL cholesterol 60 >40 mg/dL [facility] DEPARTMENT OF PATHOLOGY AND GENOMIC MEDICINE LDL cholesterol 76Comment: Result <100 mg/dL [facility] DEPARTMENT obtained by direct LDL PATHOLOGY AND GENOMIC measurement MEDICINE Lipid panel interpretation SeeBelow [facility] DEPARTMENT OF Comment: PATHOLOGY AND GENOMIC Total Cholesterol (mg/dL) MEDICINE <200 Desirable 471-333Ntkxvovyvg-skkq >=240High Triglycerides (mg/dL) <150 Normal 001-485Frbfblveta-mbzy 200-499High >=500Very high HDL Cholesterol (mg/dL) <40Low (male) <40Low (female) LDL Cholesterol (mg/dL) <100 Optimal 100-129Near or above optimal 730-840Dqvudxthmz-bpfe 160-189High >=190Very high Risk Catergories that modify [...] mg/dL) Specimen Plasma specimen Performing Organization Address City/State/Zipcode Phone Number [facility] DEPARTMENT OF PATHOLOGY AND [address] [place] [address] [facility] MEDICINE Peripheral smear (04/04/2017 4:44 PM ADVANCED PRACTICE NURSE) Peripheral smear Done [facility] DEPARTMENT OF PATHOLOGY Comment: AND [employer] MEDICINE Peripheral smear is located in Hematology Laboratory, second floor of [facility]. Specimen Blood Performing Organization Address City/State/Zipcode Phone Number [facility] DEPARTMENT OF PATHOLOGY AND [address] [place] [address] [employer]r[facility] MEDICINE Cv cta coronary arteries w contrast (04/04/2017 10:01 AM ADVANCED PRACTICE NURSE) Narrative Performed At [facility] Nuclear Cardiology and Cardiac CT [address] [place] [address] CTA Coronary Arteries Report Pat.Name:ISAIAS LAI Pat.ID:[id number] St.Date: 04/04/2017 Refer.MD:JULITO AGUILAR MD Exam Time: 9:35:00 AMStudy Type:CTA Coronary Arteries Height:70inWeight: 195.59lb BSA: 2.07 m2 DOBAge:1940,77Y Sex: MALEBP:160/91 HR:60 bpm Nuclear Tech:RT Lela(R)(CT) Pat. Stat.:Inpatient CPT - 4: CCTA w Thoracic Aorta (NonCongenital) [id number] Nuclear Event ID:[id number] Order ID:[id number] Reason for Study:CAD [place] coronary artery* Procedures:CT Coronary Angiography Race:C SUMMARY: Technique: IV contrast was administered and sequential 0.[address] cuts were obtained through the chest using the Siemens Somatom Force CT scanner. Post-processing and 3D reconstruction were done using the [employer] workstation. Interactive image viewing and volumetric display [...] Cardiovascular CTA Protocol and interpreted by a Software Test Developer.Should a more comprehensive assessment of non-cardiovascular findings be desired, please consult a radiologist.These images are available in the [facility] [employer] PACS system. Signed 04/04/2017 11:33 AM Carrillo Sanchez MD Procedure Note Interface, Radiology Results In - 04/04/2017 11:34 AM [facility] Nuclear Cardiology and Cardiac CT [address] [place] [address] CTA Coronary Arteries Report Pat.Name: ISAIAS LAI Pat.ID: [id number] .Date: 04/04/2017 Refer.MD: JULITO AGUILAR MD Exam Time: 9:35:00 AM Study Type:CTA Coronary Arteries Height: 70in Weight: 195.59lb BSA: 2.07 m2 Age: 11 1940,77Y Sex: MALE BP: 160/91 HR: 60 bpm Nuclear Tech:RT Lela(R)(CT) Pat. Stat.:Inpatient CPT - 4: CCTA w Thoracic Aorta (NonCongenital) [id number] Nuclear Event ID:[id number] Order ID: [id number] Reason for Study:CAD [place] coronary artery* Procedures:CT Coronary Angiography Race: C SUMMARY: Technique: IV contrast was administered and sequential 0.[address] cuts were obtained through the chest using the Siemens [employer] Warriorom Vertical Knowledge CT scanner. Post-processing and 3D reconstruction were done using the [employer] workstation. Interactive image viewing and volumetric display [...] Cardiovascular CTA Protocol and interpreted by a Software Test Developer. Should a more comprehensive assessment of non-cardiovascular findings be desired, please consult a radiologist. These images are available in the [facility] [employer] PACS system. Signed 04/04/2017 11:33 AM Carrillo Sanchez MD Performing Organization Address City/State/Zipcode Phone Number [facility] [address] [place] [address] Cv poultry hatchery laborer procedure (04/03/2017 4:18 PM ADVANCED PRACTICE NURSE) Narrative Performed At [facility] LM: patent LAD: mild to moderate diffuse disease, 60% in distal LAD LCx: proximally occluded RCA: 60% prox lesion with collaterals to left system but does not fill the LCx Essentially unchanged from [facility] in 2014 Plan: Admit overnight Nuclear stress test to evaluate for ischemia CTA coronaries to evaluate LCx anatomy, collaterals I was physically present for the critical portions of all procedures performed during this episode of care. Moderate sedation was administered with physician supervisionof patient consciousness, respiration, Oxygen saturation and CO2 monitoring, beginning [id number] ( time)for a total period of 60 minutes. I was physically present for the critical portions of all procedures performed during this episode of care Performing Organization Address City/[facility]/Zipcode Phone Number [facility] [address] [place] [address] CBC with platelet and differential (04/03/2017 10:24 AM ADVANCED PRACTICE NURSE) WBC 6.39 4.50 - 11.00 k/uL [facility] DEPARTMENT OF PATHOLOGY AND GENOMIC MEDICINE RBC 4.96 4.40 - 6.00 m/uL [facility] DEPARTMENT OF PATHOLOGY AND GENOMIC MEDICINE HGB 15.1 14.0 - 18.0 g/dL [facility] DEPARTMENT OF PATHOLOGY AND GENOMIC MEDICINE HCT 45.4 41.0 - 51.0 % [facility] DEPARTMENT OF PATHOLOGY AND GENOMIC MEDICINE MCV 91.5 82.0 - 100.0 fL [facility] DEPARTMENT OF PATHOLOGY AND GENOMIC MEDICINE MCH 30.4 27.0 - 34.0 pg [facility] DEPARTMENT OF PATHOLOGY AND GENOMIC MEDICINE MCHC 33.3 31.0 - 37.0 g/dL [facility] DEPARTMENT OF PATHOLOGY AND GENOMIC MEDICINE RDW - SD 43.3 37.0 - 55.0 fL [facility] DEPARTMENT OF PATHOLOGY AND GENOMIC MEDICINE MPV 11.9 8.8 - 13.2 fL [facility] DEPARTMENT OF PATHOLOGY AND GENOMIC MEDICINE Platelet count 78 (L) 150 - 400 k/uL [facility] DEPARTMENT OF PATHOLOGY AND GENOMIC MEDICINE Nucleated RBC 0.00 /100 WBC [facility] DEPARTMENT OF PATHOLOGY AND GENOMIC MEDICINE Neutrophils 67.3 39.0 - 69.0 % [facility] DEPARTMENT OF PATHOLOGY AND GENOMIC MEDICINE Lymphocytes 23.5 (L) 25.0 - 45.0 % [facility] DEPARTMENT OF PATHOLOGY AND GENOMIC MEDICINE Monocytes 7.4 0.0 - 10.0 % [facility] DEPARTMENT OF PATHOLOGY AND GENOMIC MEDICINE Eosinophils 0.5 0.0 - 5.0 % [facility] DEPARTMENT OF PATHOLOGY AND GENOMIC MEDICINE Basophils 0.8 0.0 - 1.0 % [facility] DEPARTMENT OF PATHOLOGY AND GENOMIC MEDICINE Immature granulocytes 0.5Comment: 0.0 - 1.0 % [facility] DEPARTMENT OF "Immature PATHOLOGY AND GENOMIC granulocytes" MEDICINE (promyelocytes, myelocytes, metamyelocytes) Specimen Blood Performing Organization Address City/[facility]/Zipcode Phone Number [facility] DEPARTMENT OF PATHOLOGY AND [address] [place] [address] GENOMIC MEDICINE Echocardiogram complete w contrast and 3D if needed (03/28/2017 1:45 PM ADVANCED PRACTICE NURSE) Narrative Performed At [facility] Echocardiography Report [address] [facility], [address], [place] [address] Pat.Name:ISAIAS LAI.ID:[id number] .Date: 03/28/2017Refer.MD:JULITO AGUILAR MD Exam Time: 11:46:00 AM Study Type:Routine Echo Height:70inWeight: 195lb BSA: 2.07 m2 DOBAge:1940,77Y Sex: MALEBP:135/66 HR:61 bpmSonogrphr: Annelise Costa [facility] Pat. Stat.:OutpatientStudy Status:Final Echo Event ID:[id number] Order ID:[id number] Reason for Study:Mitral valve clip History / [...] PA systolic pressure. MEASUREMENTS: 2D Parasternal [place] LVOT 2.3 cmLA Ds6 cm LVIDd5 cmIndex2.4 cm/m Ao An2.5 cm LVIDs3.7 cmAo Rtd 4 cm Index1.9 cm/m LV%fs 26.1 % LV Ltyr272.2 g(122-174) IVSd 1.6 cmLVM Tvpjp391.2 g/m2 LVPWd1.4 cmRWT0.6 LV EF Biplane HCWFO494.4 ml (65-193) Index93.9 ml/m LV SV 92.4 ml VBNPH233 cnImcuu22.3 ml/m LV EF 47.5 %(63-77) Right Ventricle RVIDd6.2 cm (2.6-4.3) LA Sng Plane LA Area 31.2 cm2(8.8-23.4) LA Vol 110.4 ml Index53.3 ml/m LA LngAx 7.3 cm RA Sng Plane RA Area 23.6 cm2(8.3-19.5) RA Vol77.9 ml Index37.7 ml/m RA LngAx 7 cm DOPPLER LVOT Stroke Vol LVOT 2.3 cmLVOT CO5.4 l/min LVOT TVI21.5 cmLVOT CI2.6 l/m/m2 LVOT Tm302 lkqkVD73 bpm LVOT SV 89.3 ml MV For [...] Radiology Results In - 03/29/2017 3:24 PM [facility] Echocardiography Report [address] [place] [address] Pat.Name: ISAIAS LAI Pat.ID: [id number] .Date: 03/28/2017 Refer.MD: JULITO AGUILAR MD Exam Time: 11:46:00 AM Study Type:Routine Echo Height: 70in Weight: 195lb BSA: 2.07 m2 Age: 11 1940,77Y Sex: MALE BP: 135/66 HR: 61 bpm Sonogrphr: ROSETTA Dietz Pat. Stat.:Outpatient Study Status:Final Echo Event ID:[id number] Order ID: [id number] Reason for Study:Mitral valve clip History / [...] PA systolic pressure. MEASUREMENTS: 2D Parasternal [place] LVOT 2.3 cm LA Ds 6 cm [...] Organization Address City/State/Zipcode Phone Number [facility] [address] [place] [address] after 03/26/2017 Insurance Payer Benefit Plan / Group Subscriber ID Type Phone Address [employer] MEDICARE [employer] MEDICARE xxxxxxxxx HMO ([place]) [place] [address] Advance Directives Patient has advance care planning documents on file. For more information, please contact:Ricardo Arce[address] [place] [address]
[2018-03-27] MEDS ORDERED: ACETAMINOPHEN 500 MG TAB ONE (13:38)
[2018-03-27 13:51] LABS: Absolute Lymphocytes (CBC) 1.6 K/uL (0.7-4.9); Absolute Monocytes 0.6 K/uL (0.1-1.3); Absolute Neutrophil 3.7 K/uL (1.8-8.0); Basophils % 0.8 % (0-1.3); Eosinophils % 1.4 % (0-4.4); Hematocrit 38.8 % (39.6-49.0); Lymphocytes % 26.2 % (15.3-44.8); Monocytes % 9.8 % (3.3-12.3); RBC Red Blood Cell Count 4.26 M/uL (4.33-5.43)
[2018-03-27 14:00] LABS: Protime INR 1.03
[2018-03-27 14:09] LABS: Albumin 3.4 g/dL (3.4-5.0); Bilirubin Direct 0.2 mg/dL (0-0.2); Bilirubin Total 0.4 mg/dL (0.2-1.0); Potassium 4.8 mmol/L (3.5-5.1); Protein, Total 6.5 g/dL (6.4-8.2); Troponin (Emerg Dept Use Only) 0.02 ng/mL (0.0-0.045)
--- NOTE | 2018-03-27 14:23 | RAD REPORT ---
EXAM DESCRIPTION: RAD - Chest Single View - 03/27/2018 2:11 pm CLINICAL HISTORY: Shortness of breath COMPARISON: None. TECHNIQUE: AP portable chest image was obtained 1406 hours . FINDINGS: No pulmonary edema, mass or consolidation. Underlying interstitial lung disease is evident . Heart size is upper normal. No vascular engorgement. No failure or volume overload. Defibrillator i s in place. No measurable pleural effusion and no pneumothorax. No acute bony abnormality seen. No ac picayune aortic findings suspected. IMPRESSION: No acute cardiopulmonary process. Nonacute findings detailed in the body of the report.
--- NOTE | 2018-03-27 14:41 | RAD REPORT ---
EXAM DESCRIPTION: US - Extremity Venous [employer] - 03/27/2018 2:04 pm CLINICAL HISTORY: Left leg pain and swelling COMPARISON: None. TECHNIQUE: Real-time sonographic evaluation of the left lower extremity deep venous system was perfo rmed. FINDINGS: Normal compressibility, flow augmentation, phasic flow and spontaneous flow are identified in the left lower extremity common femoral, superficial femoral, popliteal and posterior tibial vein s. No intraluminal filling defects seen. IMPRESSION: No DVT in the left lower extremity.
[2018-03-27 15:15] LABS: Blood Morphology Comment NOT SEEN (NOT SEEN); Platelet Estimate DECR; Urine White Blood Cell Casts OK
--- NOTE | 2018-03-27 15:27 | ER ---
Nurse's Notes [facility] Name: Isaias Frances Age: 78 yrs Sex: Male : 1940 Arrival Date: 03/27/2018 Time: 11:52 Bed 17 Private MD: None, None Diagnosis: left Knee Pain;Left Leg Pain Presentation: 03/27 11:57 Presenting complaint: Patient states: coming from [place] [facility]; had an XRAy on my L leg hj and they told me i might have a blood clot; was sent here to R/O DVT; reports SOB;. Transition of care: patient was not received from another setting of care. Onset of symptoms was March 27, 2018. Risk Assessment: Do you want to hurt yourself or someone else? Patient reports no desire to harm self or others. Initial Sepsis Screen: Does the patient meet any 2 criteria? No. Patient's initial sepsis screen is negative. Does the patient have a suspected source of infection? No. Patient's initial sepsis screen is negative. Care prior to arrival: None. 11:57 Method Of Arrival: Ambulatory 11:57 Acuity: ANGELIA 3 hj Triage Assessment: 12:02 General: Appears in no apparent distress. uncomfortable, Behavior is calm, cooperative, hj appropriate for age. Pain: Complains of pain in left leg. Historical: - Allergies: 12:02 No Known Allergies; hj - Home Meds: 12:02 atorvastatin 40 mg oral tab 1 tab once daily [Active]; carvedilol 25 mg oral tab 1 tab hj 2 times per day [Active]; Entresto 24-26 mg oral tab [Active]; finasteride 5 mg oral tab 1 tab once daily [Active]; memantine 10 mg oral tab 1 tab 2 times per day [Active]; tamsulosin 0.4 mg oral cp24 1 cap once daily [Active]; topiramate 200 mg oral CSpX 1 cap once daily [Active]; amlodipine 10 mg tab 1 tab once daily [Active]; meloxicam 7.5 mg oral tab 1 tab once daily [Active]; - PMHx: 12:02 Hypertension; stomach CA; hj - PSHx: 12:02 nephrectomy; pacemaker; hj - Immunization history:: Adult Immunizations up to date. - Social history:: Smoking status: Patient uses tobacco products, Patient/guardian denies using alcohol. - Ebola Screening: : Patient negative for fever greater than or equal to 101.5 degrees Fahrenheit, and additional compatible Ebola Virus Disease symptoms Patient denies exposure to infectious person Patient denies travel to an Ebola-affected area in the 21 days before illness onset. Screenin:02 Abuse screen: Denies threats or abuse. Denies injuries from another. Nutritional hj screening: No deficits noted. Tuberculosis screening: No symptoms or risk factors identified. Fall Risk None identified. Assessment: 13:00 General: Appears in no apparent distress. uncomfortable, Behavior is calm, cooperative, bp appropriate for age. Pain: Complains of pain in left leg. Neuro: Level of Consciousness is awake, alert, obeys commands, Oriented to person, place, time, situation, Appropriate for age. Cardiovascular: No deficits noted. Respiratory: Airway is patent Respiratory effort is even, unlabored, Respiratory pattern is regular, symmetrical. GI: No signs and/or symptoms were reported involving the gastrointestinal system. : No signs and/or symptoms were reported regarding the genitourinary system. EENT: No deficits noted. Derm: No deficits noted. Musculoskeletal: Circulation, motion, and sensation intact. Range of motion: intact in all extremities, Swelling present in left leg. 15:34 Reassessment: PT D/C HOME AMBULATORY WITH FAMILY, DX WITH LEFT KNEE PAIN. bp Vital Signs: 12:03 BP 128 / 77; Pulse 60; Resp 18; Temp 98.1(TE); Pulse Ox 98% on R/A; Weight 88.45 kg; hj Height 5 ft. 10 in. (177.80 cm); Pain 8/10; 13:30 BP 118 / 97; Pulse 59; Resp 14; Pulse Ox 98% ; bp 15:21 BP 133 / 74; Pulse 59; Resp 18; Temp 98.0(O); Pulse Ox 100% on R/A; mh5 12:03 Body Mass Index 27.98 (88.45 kg, 177.80 cm) ED Course: 11:52 Patient arrived in ED. mr 11:53 None, None is Private Physician. mr 11:59 Triage completed. hj 12:02 Arm band placed on left wrist. hj 12:03 Patient has correct armband on for positive identification. Placed in gown. Bed in low hj position. Call light in reach. Side rails up X 1. Adult w/ patient. 13:03 Mk Fitzpatrick, RN is Primary Nurse. bp 13:06 Zaki Hernandez MD is Attending Physician. wa 13:30 Inserted saline lock: 20 gauge in right forearm, using aseptic technique. Blood bp collected. 13:44 EKG done, by technical solution architect. reviewed by Zaki Hernandez MD. sm3 14:05 US Extremity Venous Unilateral Ltd In Process Unspecified. EDMS 14:06 Ultrasound completed. Patient moved back from ultrasound. aa4 14:12 XRAY CXR (1 view) In Process Unspecified. EDMS 15:27 Yaron Clemons MD is Referral Physician. wa 15:34 No provider procedures requiring assistance completed. IV discontinued, intact, bp bleeding controlled, No redness/swelling at site. Pressure dressing applied. Administered Medications: 13:30 Drug: Tylenol 1000 mg Route: PO; bp 15:33 Follow up: Response: Pain is decreased bp Outcome: 15:27 Discharge ordered by MD. wa 15:34 Discharged to home ambulatory, with family. bp 15:34 Condition: stable 15:34 Discharge instructions given to patient, Instructed on discharge instructions, follow up and referral plans. Demonstrated understanding of instructions, follow-up care. 15:36 Patient left the ED. bp Signatures: Dispatcher [employer] EDIL Clarissa Alcocer Amanda aa4 Mohan Mtz, Jennifer Mcdonald RN [facility] Zaki Hernandez MD MD wa Peltier, Brian, RN RN bp Soraya Argueta sm3 Corrections: (The following items were deleted from the chart) 12:05 12:03 Pulse 60bpm; Resp 18bpm; Pulse Ox 98% RA; Temp 98.1F Temporal; 88.45 kg; Height 5 hj ft. 10 in.; BMI: 27.9; Pain 8/10; hj
--- NOTE | 2018-03-27 15:28 | EDPHYS ---
Physician Documentation [facility] Name: Isaias Frances Age: 78 yrs Sex: Male : 1940 Arrival Date: 03/27/2018 Time: 11:52 Bed 17 Private MD: None, None ED Physician Zaki Hernandez Historical: - Allergies: 03/27 12:02 No Known Allergies; hj - Home Meds: 12:02 atorvastatin 40 mg oral tab 1 tab once daily [Active]; carvedilol 25 mg oral tab 1 tab hj 2 times per day [Active]; Entresto 24-26 mg oral tab [Active]; finasteride 5 mg oral tab 1 tab once daily [Active]; memantine 10 mg oral tab 1 tab 2 times per day [Active]; tamsulosin 0.4 mg oral cp24 1 cap once daily [Active]; topiramate 200 mg oral CSpX 1 cap once daily [Active]; amlodipine 10 mg tab 1 tab once daily [Active]; meloxicam 7.5 mg oral tab 1 tab once daily [Active]; - PMHx: 12:02 Hypertension; stomach CA; hj - PSHx: 12:02 nephrectomy; pacemaker; hj - Immunization history:: Adult Immunizations up to date. - Social history:: Smoking status: Patient uses tobacco products, Patient/guardian denies using alcohol. - Ebola Screening: : Patient negative for fever greater than or equal to 101.5 degrees Fahrenheit, and additional compatible Ebola Virus Disease symptoms Patient denies exposure to infectious person Patient denies travel to an Ebola-affected area in the 21 days before illness onset. Vital Signs: 12:03 BP 128 / 77; Pulse 60; Resp 18; Temp 98.1(TE); Pulse Ox 98% on R/A; Weight 88.45 kg; hj Height 5 ft. 10 in. (177.80 cm); Pain 8/10; 13:30 BP 118 / 97; Pulse 59; Resp 14; Pulse Ox 98% ; bp 15:21 BP 133 / 74; Pulse 59; Resp 18; Temp 98.0(O); Pulse Ox 100% on R/A; mh5 12:03 Body Mass Index 27.98 (88.45 kg, 177.80 cm) MDM: 13:06 Patient medically screened. ak 03/27 13:17 Order name: BMP; Complete Time: 14:58 03/27 13:17 Order name: CBC with Diff; Complete Time: 03:31 03/27 13:17 Order name: D-Dimer; Complete Time: 14:58 03/27 13:17 Order name: Hepatic Function; Complete Time: 14:58 03/27 13:17 Order name: NT PRO-BNP; Complete Time: 14:57 03/27 13:17 Order name: PT-INR; Complete Time: 14:58 03/27 13:17 Order name: XRAY CXR (1 view); Complete Time: 14:58 03/27 13:17 Order name: Troponin (emerg Dept Use Only); Complete Time: 14:58 03/27 13:17 Order name: EKG; Complete Time: 13:20 ak 03/27 13:17 Order name: Cardiac monitoring; Complete Time: 13:37 ak 03/27 13:17 Order name: EKG - Nurse/Tech; Complete Time: 13:37 ak 03/27 13:19 Order name: US Extremity Venous Unilateral Ltd; Complete Time: 14:57 ak 03/27 15:16 Order name: CBC Smear Scan; Complete Time: 03:31 [facility] 03/27 13:17 Order name: IV Saline Lock; Complete Time: 13:37 ak 03/27 13:17 Order name: Labs collected and sent; Complete Time: 13:37 ak 03/27 13:17 Order name: O2 Sat Monitoring; Complete Time: 13:37 ak Administered Medications: 13:30 Drug: Tylenol 1000 mg Route: PO; bp 15:33 Follow up: Response: Pain is decreased bp Disposition: 03/27/18 15:27 Discharged to Home. Impression: left Knee Pain, Left Leg Pain. - Condition is Stable. - Discharge Instructions: Knee Pain, [place]. - Medication Reconciliation Form, Thank You Letter, Antibiotic Education, Prescription Opioid Use form. - Follow up: Yaron Clemons MD; When: 1 - 2 days; Reason: Recheck today's complaints. - Problem is new. - Symptoms have improved. - Notes: take tylenol for pain as needed as discussed. see the bone doctor next business day for further evaluation of your leg pain Addendum: 03/29/2018 03:33 Addendum: CC: L leg pain HPI: sent her for r/o blood clots in the leg. states pain w a around the L knee area x 5 days. seen here with negative x-rays a few days ago. PMHx: HTN. Stomach CA. All: NKDA. PSHx: Nephrectomy. Pacemaker. ROS: L leg pain. Otherwise all other systems reviewed and negative. EXAM: HEENT: NCAT. CVS: NS1 and S2. no murmurs. CHEST: clear bilaterally. Abd: Soft. Ext: Mild tenderness noted L lateral lower thigh region. also tender in L popliteal region. no calf tenderness. Neuro: alert. no motor abnml. Ddx: r/o DVT. doppler US LLE: no DVT. pt d/c'd home with close f/u. ambulated without difficulty at time of d/c. Signatures: Dispatcher [employer] EDMohan Bell RN RN Zaki Hernandez MD MD wa Peltier, Brian, RN RN bp Corrections: (The following items were deleted from the chart) 03/27 15:36 15:27 03/27/2018 15:27 Discharged to Home. Impression: left Knee Pain; Left Leg Pain. bp Condition is Stable. Forms are Medication Reconciliation Form, Thank You Letter, Antibiotic Education, Prescription Opioid Use. Follow up: Dr. Yaron Clemons; When: 1 - 2 days; Reason: Recheck today's complaints. Problem is new. Symptoms have improved. darlene
--- NOTE | 2018-03-27 17:04 | EKG ---
Test Date: 2018-03-27 Test Time: 13:39:10 Gaming Associate: NIKIA MEASUREMENT RESULTS: Intervals: Rate: 60 DE: 202 QRSD: 174 QT: 468 QTc: 468 Trent: P: 49 DE: 202 QRS: 240 T: -16 INTERPRETIVE STATEMENTS: AV dual-paced rhythm Biventricular pacemaker detected Abnormal ECG No previous ECG available for comparison Electronically Signed On 03-27-18 17:03:30 VIRTUALIZATION CONSULTANT by Bernabe Rojas
== END 2018-03-27 15:36 | disposition home or self-care (01) ==
LOC: ER 11:49
DX: M25.562 Pain in left knee (principal); I10 Essential (primary) hypertension; Z72.0 Tobacco use; Z85.028 Personal history of other malignant neoplasm of stomach; Z95.0 Presence of cardiac pacemaker
CPT/HCPCS: 36415; 71045; 80048; 80076; 83880; 84484; 85025; 85379; 85610; 93005; 93971; 99284